=== PATIENT | male | born 1975 | race Caucasian/White ===

== ENCOUNTER 2020-04-30 11:07 | Day surgery (SDC) | payer OTHER, SELFPAY ==
[2020-04-26 12:40] VITALS: BMI 38.9
--- NOTE | 2020-04-28 15:13 | P.CONAN_ITS ---
HPI - Anesthesia Eval Consult details Narrative: 44yo M for Upper Endoscopy [facility] Past Medical History Medical History Dysphagia High cholesterol Surgical History Surgical History History of nasal surgery Hx of esophagogastroduodenoscopy Social History Social History Smoking Status: Never smoker Use of substances other than those prescribed or required for medical reasons: No Have you been hit, kicked, punched, or otherwise hurt by someone within the past year? If so, by whom?: No Advance Directives: No Advance Directives Information Provided: No Advance Directives on File: No Meds Allergies Allergy/AdvReac Type Severity Reaction Status Date / Time Codeine Phosphate Allergy Unknown rash Uncoded 04/26/20 12:39 Home Medications Medication Instructions Recorded Confirmed Type simvastatin 1 tab PO BEDTIME 04/26/20 04/26/20 History Exam Exam Date and Time: April 28, 2020 1513 Height,Weight and Vital Signs: Height 5 ft 9 in Weight 119.748 kg Assessment and Plan Assessment Anesthesia Assessment: Chart Reviewed
--- NOTE | 2020-04-30 11:32 | MHC.SHP ---
Pre-Procedural Eval Section A The patient is an INPATIENT: No Changes since office visit: No Cold of Flu in the past 2 weeks, No New Medical Problems, No Changes in Medication and No Patient answered all questions The History & Physical has been completed within 30 days and I have reviewed it.: Yes Section B Chief Complaint: dysphagia Allergies: Allergies Allergy/AdvReac Type Severity Reaction Status Date / Time Codeine Phosphate Allergy Unknown rash Uncoded 04/26/20 12:39 Plan Patient has been examined and remains a candidate for the planned procedure
[2020-04-30] MEDS: Lactated Ringers 1,000 ML 100 ML IVCONT (11:35)
--- NOTE | 2020-04-30 11:52 | PM.OP ---
Brief Operative Note Date of Service: 04/30/20 Pre-op diagnosis: dysphagia Post-op diagnosis: same (gerd with esophagitis) Procedure: egd Surgeon: Binu Chow Anesthesia: MAC Estimated blood loss (mL): 5 Pathology: none sent (antrum, egj biopsies) Condition: stable Disposition: PACU
[2020-04-30 11:57] VITALS: BP 120/80; PULSE 85; RESP 16; TEMP 37; O2SAT 97
[2020-04-30 12:12] VITALS: BP 116/82; PULSE 79; RESP 16; O2SAT 97
--- NOTE | 2020-04-30 12:26 | OP_ITS ---
SURGEON: Binu Chow MD INDICATIONS: Dysphagia and gastroesophageal reflux disease. PREOPERATIVE DIAGNOSIS: POSTOPERATIVE DIAGNOSIS: PROCEDURE PERFORMED: Upper endoscopy with biopsy. ESTIMATED BLOOD LOSS: COMPLICATIONS: ANESTHESIA: ASSISTANTS: SPECIMENS: MEDICATIONS: Monitored anesthesia care. DESCRIPTION OF PROCEDURE: History and physical performed. The risks and benefits of the procedure were explained to the patient. Informed consent was obtained. The patient was placed in left lateral decubitus position. The Olympus video gastroscope was introduced into the esophagus, stomach, and duodenum. Examination was performed and the scope was removed. He tolerated the procedure well and was taken to recovery area in stable condition. FINDINGS: Esophagus: The esophagus showed distal esophagitis with linear ulceration extending up for about 2 cm above the EG junction. There was a nonobstructive Schatzki ring and a sliding hiatal hernia. Stomach: The stomach showed no evidence of masses, ulcers, or polyps. Duodenum: The bulb and second portion were normal. Biopsies were obtained from the antrum and EG junction. No attempted dilation was made because the esophagus showed distal esophagitis. IMPRESSION: Gastroesophageal reflux disease with esophagitis. RECOMMENDATIONS: 1. Follow up the biopsy results. 2. Consider repeat endoscopy with balloon dilation, pending clinical course. MD ASHLEY Fuchs/AVINASH / [id number]
--- NOTE | 2020-04-30 13:07 | HO.POSTANES ---
Post Anesthesia Evaluation Post Anesthesia Evaluation Vital Signs: Vital Signs Temp Pulse Resp BP Pulse Ox 04/30/20 12:12 79 16 116/82 97 04/30/20 11:57 98.6 F 85 16 120/80 97 Anesthesia: Monitored Mental Status: Awake Pain Control: Satisfactory Nausea/Vomiting: None Hydration: Adequate Anesthesia-Related Issues: No Anes. Related Issues
== END 2020-04-30 12:51 | disposition home or self-care (01) ==
PROVIDERS: PCP Internal Medicine; Visit Provider Internal Medicine Gastroenterology
PROC: 0DJ08ZZ Inspection of Upper Intestinal Tract, Via Natural or Artificial Opening Endoscopic (ICD-10-PCS; CPT 43235; principal; 2020-04-30 12:20)
DX: K21.00 Gastro-esophageal reflux disease with esophagitis, without bleeding (principal); K22.2 Esophageal obstruction; K44.9 Diaphragmatic hernia without obstruction or gangrene; E78.5 Hyperlipidemia, unspecified; Z79.899 Other long term (current) drug therapy; Z88.8 Allergy status to other drugs, medicaments and biological substances
CPT/HCPCS: 43239; 88305; 88312; 88342

== ENCOUNTER 2020-10-01 10:42 | Day surgery (SDC) | payer OTHER, SELFPAY ==
[2020-09-27 13:03] VITALS: BMI 40.4
--- NOTE | 2020-09-29 14:04 | HO.ANESPROP2 ---
HPI - Anesthesia Eval Consult details Narrative: 45yo M for Upper Endoscopy s/p EGD 04/2020 with TERESO NICHOLAS Past Medical History Medical History Dysphagia High cholesterol Surgical History Surgical History History of nasal surgery Hx of esophagogastroduodenoscopy Social History Social History Are you a primary care services manager to a significant other at home: No Do you presently have visiting nurse or other home services: No Smoking Status: Never smoker Advance Directives: No Advance Directives Information Provided: No Advance Directives on File: No Recently lost weight without trying: No Meds Allergies Allergy/AdvReac Type Severity Reaction Status Date / Time Codeine Phosphate Allergy Intermediate Hives Uncoded 10/01/20 10:58 Home Medications Medication Instructions Recorded Confirmed Last Taken Type omeprazole 40 mg PO DAILY 09/27/20 09/27/20 Unknown History Exam Exam Date and Time: September 29, 2020 1404 Height,Weight and Vital Signs: Height 5 ft 9 in Weight 124.284 kg Assessment and Plan Assessment Anesthesia Assessment: Chart Reviewed
[2020-10-01 10:59] VITALS: BP 117/82; PULSE 88; RESP 18; TEMP 36.9; O2SAT 97
[2020-10-01] MEDS: Lactated Ringers 1,000 ML 100 ML IVCONT (11:04)
--- NOTE | 2020-10-01 11:44 | P.CONAN_ITS ---
[facility] Past Medical History Medical History Dysphagia High cholesterol Surgical History Surgical History History of nasal surgery Hx of esophagogastroduodenoscopy Social History Social History Are you a primary residential care facility manager to a significant other at home: No Do you presently have visiting nurse or other home services: No Smoking Status: Never smoker Advance Directives: No Advance Directives Information Provided: No Advance Directives on File: No Recently lost weight without trying: No Meds Allergies Allergy/AdvReac Type Severity Reaction Status Date / Time Codeine Phosphate Allergy Intermediate Hives Uncoded 10/01/20 10:58 Active Medications: Current Medications Generic Name Dose Route Start Last Admin Trade Name Freq PRN Reason Stop Dose Admin Lactated Ringer's 1,000 mls @ 100 mls/hr 10/01/20 11:00 10/01/20 11:04 Lr IVCONT 100 mls/hr .Q10H ZOE Administration Home Medications Medication Instructions Recorded Confirmed Last Taken Type omeprazole 40 mg PO DAILY 09/27/20 09/27/20 Unknown History Exam Exam Date and Time: October 01, 2020 1144 Height,Weight and Vital Signs: Height 5 ft 9 in Weight 124.284 kg Last Vital Signs Temp 98.5 F 10/01/20 10:59 Pulse 88 10/01/20 10:59 Resp 18 10/01/20 10:59 BP 117/82 10/01/20 10:59 Pulse Ox 97 10/01/20 10:59 Airway Mallampati Class: II TM Dist: >3cm Neck ROM: Full Assessment and Plan Assessment Anesthesia Assessment: Anesthesia Plan Discussed and Chart Reviewed Final Anesthetic Review NPO: Yes ASA Class: III Final Preanesthetic Review: No Changes in Pt Med Stat, Meds/Allgs Chart Reviewed, Consent Obtained/Reviewed and Anes Risks/Benef Reviewed Patient Risk: Intermediate Procedure Risk: Low Assessment/Block/Sedation in SS: Assess/Block/Sedation-SS Anesthetic Plan Anesthetic Plan: MAC: Disposition: Standard PACU
--- NOTE | 2020-10-01 12:07 | P.HPSUR_ITS ---
Pre-Procedural Eval Section B Chief Complaint: ulcer without bleeding Details of Present Illness: see h&P no changes Relevant Family History (Specify if Yes): No Relevant Social History: None Present Medications: see Short Stay Collaborative assessment Medical History: No relevant PMH History of Previous Operations: No relevant previous surgery Allergies: Allergies Allergy/AdvReac Type Severity Reaction Status Date / Time Codeine Phosphate Allergy Intermediate Hives Uncoded 10/01/20 10:58 Review of Systems Sugical H&P ROS: Negative: Constitution, Cardiovascular, Respiratory, Neurological, Psychiatric, Hem-Onc, Allergic/Immunologic, Gastrointestinal, Gen itourinary, Musculoskeletal, Integumentary, Endocrine and Eyes/Ears/Nose/Throat Exam Surgical H&P Exam: Normal: HEENT, Normal: Heart, Normal: Lungs, Normal: Extremities, Normal: Abdomen, Normal: Skin and Normal: Neurological Plan Diagnosis/Plan: Unchanged I have reviewed the history and physical and performed a pertinent physical examination on my patient. No changes have occurred unless specified.
--- NOTE | 2020-10-01 12:34 | PM.OP ---
Brief Operative Note Date of Service: 10/01/20 Pre-op diagnosis: erosive esophagitits Post-op diagnosis: same Procedure: egd Surgeon: Binu Chow Anesthesia: MAC Estimated blood loss (mL): 5 Pathology: other (egj,antral biopsies) Condition: stable Disposition: PACU
[2020-10-01 12:35] VITALS: BP 115/78; PULSE 87; RESP 16; TEMP 36.8; O2SAT 92
[2020-10-01 12:53] VITALS: BP 101/72; PULSE 80; RESP 18; TEMP 36.8; O2SAT 96
--- NOTE | 2020-10-01 13:49 | OP_ITS ---
SURGEON: Binu Chow MD INDICATIONS: Erosive esophagitis. PREOPERATIVE DIAGNOSIS: POSTOPERATIVE DIAGNOSIS: PROCEDURE PERFORMED: Upper endoscopy with biopsy. ESTIMATED BLOOD LOSS: COMPLICATIONS: ANESTHESIA: ASSISTANTS: SPECIMENS: MEDICATIONS: Monitored anesthesia care. DESCRIPTION OF PROCEDURE: History and physical performed. The risks and benefits of the procedure were explained to the patient. Informed consent was obtained. The patient was placed in left lateral decubitus position. The Olympus video gastroscope was introduced into the esophagus, stomach, and duodenum. Examination was performed and the scope was removed. He tolerated the procedure well and was taken to recovery area in stable condition. FINDINGS: ESOPHAGUS: The esophagus showed several small erosions right at the EG junction, but in general was much improved from his previous examination in the fall. There was nonobstructive Schatzki ring and a slight prolapsing of the EG junction consistent with a sliding hiatal hernia during respiration and coughing. STOMACH: The stomach showed no evidence of masses, ulcers, or polyps. DUODENUM: The bulb and second portion were normal. Biopsies were obtained from the EG junction and antrum. IMPRESSION: Erosive esophagitis. RECOMMENDATION: Follow up the biopsy results. MD ASHLEY Fuchs/AVINASH / [id number]
== END 2020-10-01 13:44 | disposition home or self-care (01) ==
PROVIDERS: PCP Internal Medicine; Visit Provider Internal Medicine Gastroenterology
PROC: 0DJ08ZZ Inspection of Upper Intestinal Tract, Via Natural or Artificial Opening Endoscopic (ICD-10-PCS; CPT 43235; principal; 2020-10-01 11:50)
DX: K22.10 Ulcer of esophagus without bleeding (principal); R13.10 Dysphagia, unspecified; Z79.899 Other long term (current) drug therapy; Z88.8 Allergy status to other drugs, medicaments and biological substances
CPT/HCPCS: 43239; 88305; 88342

== ENCOUNTER 2022-01-03 16:01 | Emergency (ER) | payer OTHER, SELFPAY | END 2022-01-03 17:35 | disposition left against medical advice (07) | PROVIDERS: Emergency Provider Emergency Medicine; PCP Internal Medicine | DX: S59.909A Unspecified injury of unspecified elbow, initial encounter (principal); X58.XXXA Exposure to other specified factors, initial encounter; Y93.9 Activity, unspecified; Y92.59 Other trade areas as the place of occurrence of the external cause; Y99.0 Civilian activity done for income or pay ==

== ENCOUNTER → 2023-01-03 15:23 | Outpatient (BNVA) | payer OTHER, SELFPAY | PROVIDERS: PCP Internal Medicine; Visit Provider Physician Assistant | DX: T23.251A Burn of second degree of right palm, initial encounter (principal); T52.0X1A Toxic effect of petroleum products, accidental (unintentional), initial encounter | CPT/HCPCS: 99203 ==

== ENCOUNTER → 2023-01-05 09:17 | Outpatient (BNVA) | payer OTHER, SELFPAY | PROVIDERS: PCP Internal Medicine; Visit Provider Physician Assistant | DX: T23.251A Burn of second degree of right palm, initial encounter (principal); T52.0X1A Toxic effect of petroleum products, accidental (unintentional), initial encounter | CPT/HCPCS: 99214 ==

== ENCOUNTER → 2023-01-08 11:05 | Outpatient (BNVA) | payer OTHER, SELFPAY | PROVIDERS: PCP Internal Medicine; Visit Provider Physician Assistant Medical | DX: T23.251A Burn of second degree of right palm, initial encounter (principal); T52.0X1A Toxic effect of petroleum products, accidental (unintentional), initial encounter | CPT/HCPCS: 99213 ==

== ENCOUNTER → 2023-01-16 14:03 | Outpatient (BNVA) | payer OTHER, SELFPAY | PROVIDERS: PCP Internal Medicine; Visit Provider Physician Assistant Medical | DX: T23.251D Burn of second degree of right palm, subsequent encounter (principal); T52.0X1D Toxic effect of petroleum products, accidental (unintentional), subsequent encounter | CPT/HCPCS: 99213 ==

== ENCOUNTER 2023-09-27 16:11 | Outpatient (AMB) | payer BC, SELFPAY ==
[2023-09-27 16:17] VITALS: BP 126/82; PULSE 97; O2SAT 96; BMI 40.6
--- NOTE | 2023-09-27 16:17 | MHC.PC.OV ---
Vital Signs 09/27/23 16:17 Height 5 ft 9 in Weight 275 lb 0.5 oz BMI 40.6 BP 126/82 Blood Pressure Location Lt brachial Position Sitting Pulse 97 Pulse Source Pulse Oximeter Pulse Oximetry (%) 96 Oxygen Delivery Method Room Air Intake Visit Reasons: Annual exam Intake Note: Patient is here today for a physical. Regulatory Affairs Consultant Required: No Allergies Codeine Phosphate Allergy (Intermediate, Uncoded 09/27/23 16:17) Hives Medication List - Last Reconciled 09/27/23 by Rancho Mariscal MD omeprazole 40 mg PO DAILY simvastatin 10 mg PO BEDTIME Tobacco use date assessed: 09/27/23 Dental Screening Dental Screen Date: 09/27/23 Did you have a dental visit in the last 12 months?: Yes Did you have a dental problem in the last 6 months where you did not have access to dental care?: No Was dental information given to patient?: Patient has dentist HPI Annual exam HPI Details 48-year-old morbidly obese male with a history of Barretts esophagus hypercholesterolemia coming in for physical exam last seen in April 2022. Patient was reminded about colonoscopy but this has not been done. Review of the notes has had ER visits for second-degree burn of the right palm Patient also has seen Orthopedics regarding rupture of the left distal biceps tendon status post repair of left distal biceps repair. 01/19/2022 [facility] Medical History (Updated 09/27/23 @ 16:26 by Rancho Mariscal MD) Left elbow fracture Closed left hip fracture Schatzki's ring Obstructive sleep apnea Hypercholesterolemia Obesity (BMI 30-39.9) Surgical History Hx of esophagogastroduodenoscopy History of nasal surgery Family History (Updated 09/27/23 @ 16:35 by Rancho Mariscal MD) Mother Myocardial infarct Paternal Grandmother No problems noted. Paternal Grandfather Esophageal cancer Paternal Uncle Esophageal cancer Maternal Grandmother Breast cancer in situ Father Camilo esophagus Paternal Aunt Camilo esophagus Social History (Updated 09/27/23 @ 16:36 by Rancho Mariscal MD) Housing: House Are you a primary wound care nurse to a significant other at home: No Do you presently have visiting nurse or other home services: No Alcohol intake: current Comment: once q 3 months 1-2 drinks Patient Tobacco Use Status: Never used Tobacco e-Cigarette/Vaping Use: Never Used Second Hand Smoke Exposure: No service: No Current occupational status: employed Cognitive needs: No Hearing needs: No Vision needs: No Questionnaire PHQ-9 Over the last 2 weeks, how often have you been bothered by any of the following problems? 1. Little interest or pleasure in doing things: not at all 2. Feeling down, depressed, or hopeless: not at all 3. Trouble falling or staying asleep, or sleeping too much: not at all 4. Feeling tired or having little energy: not at all 5. Poor appetite or overeating: not at all 6. Feeling bad about yourself - or that you are a failure or have let yourself or your family down: not at all 7. Trouble concentrating on things, such as reading the newspaper or watching television: not at all 8. Moving or speaking so slowly that other people could have noticed. Or the opposite - being so fidgety or restless that you have been moving around a lot more than usual: not at all 9. Thoughts that you would be better off or of hurting yourself in some way: not at all Total score: 0 Depression Screening Interpretation: Negative Depression Screening Done: Yes 22242 - PHQ-9 Billing: Yes Source: Developed by Drs. Nasim Thacker, Trupti Kaur, Clayton Krause and colleagues, with an educational karly from [employer]. Thrive Questionnaire Date Thrive assessed: 09/27/23 I am a: Patient What is your living situation today?: I have a steady place to live Within the past 12 months, did the food you bought not last and you didn't have the money to get more?: Never true Within the past 12 months, did you worry whether your food would run out before you got money to buy more?: Never true Do you have trouble paying for medicines?: No Do you have trouble getting transportation to medical appointments?: No Do you have trouble paying your heating and electricity bill?: No Do you have trouble taking care of your child, family member or friend?: No Do you have trouble with day-to-day activities such as bathing, preparing meals, shopping, managing finances, etc.?: No Are you currently unemployed and looking for a job?: No Are you interested in more education?: No Please select the resources that you would like help with: None Currently or been in a relationship where the following occur: no concerns reported THRIVE Score: 0 AUDIT C Alcohol Use Questionnaire (AUDIT-C) 1. How often do you have a drink containing alcohol?: Monthly or less 2. How many drinks containing alcohol do you have on a typical day when you are drinking?: 1 or 2 3. How often do you have six or more drinks on one occasion?: Never Total Score: 1 LEAH-7 AMB Questionnaire LEAH-7 Date LEAH - 7 assessed: 09/27/23 Feeling nervous, anxious, or on edge: 0 = Not at all Not being able to stop or control worryin = Not at all Worrying too much about different things: 0 = Not at all Trouble relaxin = Not at all Being so restless that it is hard to sit still: 0 = Not at all Becoming easily annoyed or irritable: 0 = Not at all Feeling afraid as if something awful might happen: 0 = Not at all Total LEAH-7 score (0-4 normal; 5-9 mild; 10-14 moderate; 15-21 severe): 0 Source: Developed by Drs. Nasim Thacker, Trupti Kaur, Clayton Krause and colleagues, with an educational karly from [employer]. LEAH-7 Assessment Billing LEAH-7 Assessment Tool: LEAH-7 Assessment 91386 Review of Systems Const Denies poor appetite and Denies weakness Eyes Denies no additional complaints ENT Reports Normal hearing present, Denies dizziness, Denies nasal congestion, Denies tinnitus and Denies sore throat Card Denies chest pain, Denies syncope, Denies rapid heart rate and Denies dyspnea Resp Denies cough and Denies dyspnea GI Denies change in stool character, Reports constipation, Denies diarrhea, Denies nausea and Denies vomiting Denies dysuria and Denies urinary frequency Neuro Reports Normal hearing present, Denies confusion, Denies dizziness, Denies syncope and Denies weakness Psych Denies confusion Physical exam (Primary Care) Vital Signs: Last Vital Signs Pulse 97 09/27/23 16:17 BP 126/82 09/27/23 16:17 Pulse Ox 96 09/27/23 16:17 Oxygen Delivery Method Room Air 09/27/23 16:17 BMI result Body Mass Index 40.6 Tobacco/Smoking Status: Tobacco use Status Tobacco use date assessed 09/27/23 09/27/23 16:18 Patient Tobacco Use Status Never used Tobacco 09/27/23 16:18 e-Cigarette/Vaping Use Never Used 09/27/23 16:18 PHQ-9: PHQ-9 Score PHQ-9: Total score 0 09/27/23 16:18 Depression Screening Interpretation: Negative Thrive Assessment: Date of Thrive Assessment Date Thrive assessed 09/27/23 09/27/23 16:18 Currently or been in a relationship where the following occur: no concerns reported Const General: No confusion Orientation/consciousness: No confusion HENMT Head: Yes normocephalic Ears: external ears normal and TM's normal bilaterally Face and sinus: Yes normal facial exam Mouth: moist mucous membranes Throat: Yes tonsils normal Eyes Conjunctivae: conjunctivae normal Pupils: Equal, round and reactive pupils present and Pupil accommodation reflex normal Direct Ophthalmoscopy: normal light reflex Neck Neck: No lymphadenopathy Thyroid: Thyroid normal Chest Chest palpation & inspection: normal inspection of the chest Resp Effort & Inspection: normal respiratory effort and no audible wheezes Auscultation: clear to auscultation bilaterally, no crackles, no wheezes and lung sounds not diminished Cardio Rate: regular rate Rhythm: regular rhythm Peripheral pulses: radial pulses present and dorsalis pedis present GI Other: Colonoscopy referral done Palpation (GI): no masses Auscultation: normal bowel sounds and normoactive bowel sounds Rectal Exam - Male: Yes deferred Male General Exam: Yes normal external exam Skin General skin exam: no rashes or lesions noted Rashes: no rashes Neuro General: No confusion Cranial nerves: Yes Equal, round and reactive pupils present and Yes Normal hearing present Cognition (Neuro): normal cognition Gait exam (Neuro): Normal gait present Motor exam (neuro): 5/5 motor strength present throughout Deep tendon reflexes (DTR's): Right brachioradialis reflex intensity grade: 2+, Left brachioradialis reflex intensity grade: 2+, Right patellar reflex intensity grade: 2+ and Left patellar reflex intensity grade: 2+ Extrem General: No edema Assessment and Plan Assessment & Plan (1) Annual physical exam: Code(s): Z00.00 - Encounter for general adult medical examination without abnormal findings (2) Morbid obesity: Code(s): E66.01 - Morbid (severe) obesity due to excess calories Plan: Diet and exercise. Had a long discussion with the patient with regards to getting himself healthier. Need to modify diet and needs exercise. Discussed about medications that can help lose the weight and will try sending in some Quimby bone. (3) Colon cancer screening: Code(s): Z12.11 - Encounter for screening for malignant neoplasm of colon Plan: Patient is reminded about colonoscopy and discussed importance of getting this done. (4) Rupture of left distal biceps tendon: Comment: Left distal biceps tendon repair 01/19/2022 Code(s): S46.212A - Strain of muscle, fascia and tendon of other parts of biceps, left arm, initial encounter Plan: Received notes from Orthopedics regarding the repair and doing good (5) Barretts esophagus: Code(s): K22.70 - 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 Qualifiers: Camilo's esophagus type: without dysplasia Qualified Code(s): K22.70 - 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 Plan: Avoid the foods that causes that usually spicy foods, tomato products, juices, coffee, soda and foods that your sensitive to. After eating do not lie down, allow 3-4 hours before in lie down. And keep the head of bed above 30 degrees to avoid the acid from going up. Presently on omeprazole 40 mg once a day (6) Obstructive sleep apnea: Comment: Cannot tolerate CPAP Code(s): G47.33 - Obstructive sleep apnea (adult) (pediatric) Plan: Discussed importance of treating sleep apnea. Will try to have patient lose the weight to help. (7) Hypercholesterolemia: Code(s): E78.00 - Pure hypercholesterolemia, unspecified Plan: Avoid fried foods, chicken skin, eggs, butter margarine, pastries and meat. Be it pork or beef they have a lot of cholesterol LDL goal of less than 130 and triglyceride of less than 150. Patient needs blood work Orders: Orders Complete Blood Count Auto Diff Today E78.00 - Pure hypercholesterolemia, unspecified Comprehensive Met. Panel Today E78.00 - Pure hypercholesterolemia, unspecified Free T4 (Free Thyroxine) Today E78.00 - Pure hypercholesterolemia, unspecified Thyroid Stimulating Hormone Today E78.00 - Pure hypercholesterolemia, unspecified Lipid Panel Today E78.00 - Pure hypercholesterolemia, unspecified Vitamin B12 and Folate Today E78.00 - Pure hypercholesterolemia, unspecified Prostate Specific Antigen Scr Today E78.00 - Pure hypercholesterolemia, unspecified Referrals Gastroenterology Referral Z12.11 - Encounter for screening for malignant neoplasm of colon Medications: New omeprazole 40 mg PO DAILY 90 caps 2RF K22.70 - 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 tirzepatide (weight loss) (Zepbound) 2.5 mg (0.5 mL) subcut QWEEK 4 weeks 2 mL 0RF E66.01 - Morbid (severe) obesity due to excess calories Refilled simvastatin 10 mg PO BEDTIME 90 tabs 2RF E78.00 - Pure hypercholesterolemia, unspecified Coding Level of Care Code Est Pt Prev Care 40-64y(64151) Diagnoses Annual physical exam Z00.00 Morbid obesity E66.01 Colon cancer screening Z12.11 Rupture of left distal biceps tendon S46.212A 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 K22.70 Camilo's esophagus type: without dysplasia Obstructive sleep apnea G47.33 Hypercholesterolemia E78.00 Additional Codes LEAH-7 Assessment Billing - LEAH-7 Assessment Tool: LEAH-7 Assessment 86635 ([id number])
== END 2023-09-27 16:56 | disposition home or self-care (01) ==
PROVIDERS: PCP Internal Medicine; Visit Provider Internal Medicine
DX: Z00.00 Encounter for general adult medical examination without abnormal findings (principal); E66.01 Morbid (severe) obesity due to excess calories; Z68.41 Body mass index [BMI] 40.0-44.9, adult; G47.33 Obstructive sleep apnea (adult) (pediatric); S46.212A Strain of muscle, fascia and tendon of other parts of biceps, left arm, initial encounter; K22.70 Barrett's esophagus without dysplasia; E78.00 Pure hypercholesterolemia, unspecified
CPT/HCPCS: 99396

== ENCOUNTER 2023-12-28 08:23 | Outpatient (REF) | payer BC, SELFPAY ==
[2023-12-28 08:33] LABS: MANUAL DIFF FLAG NO
[2023-12-28 09:04] LABS: Basophils Absolute Auto 0.1 X10*3/uL (0.0-0.2); Basophils Percent Auto 0.4 % (0-2); Eosinophils Absolute Auto 0.3 X10*3/uL (0.0-0.4); Eosinophils Percent Auto 2.2 % (0-4); Hematocrit 48.6 % (42.0-52.0); Hemoglobin 15.9 g/dl (14.0-18.0); Imm Gran Abs Auto 0.03 X10*3/uL (0.00-0.03); Imm Gran Pct Auto 0.3 % (0.0-0.4); Lymphocytes Absolute Auto 4.3 X10*3/uL (1.2-4.9); Lymphocytes Percent Auto 37.7 % (20-40); Mean Corpuscular HGB Conc 32.7 g/dl (31.0-36.0); Mean Corpuscular Hemoglobin 30.9 pg (27.0-33.0); Mean Corpuscular Volume 94.6 fL (80.0-98.0); Mean Platelet Volume 11.4 fL (9.4-12.4); Monocytes Absolute Auto 0.8 X10*3/uL (0.1-1.2); Monocytes Percent Auto 7.2 % (2-11); Neutrophils Absolute Auto 5.9 x10*3/uL (2.0-8.3); Neutrophils Percent Auto 52.2 % (45-73); Platelet Count 356 X10*3/uL (160-400); Red Blood Count 5.14 X10*6/uL (4.60-5.80); Red Cell Distribution Width 12.6 % (11.0-16.0); White Blood Count 11.3 X10*3/uL (4.8-10.8)
[2023-12-28 09:42] LABS: Alanine Aminotransferase 31 U/L (0-40); Albumin Level 4.4 g/dL (3.5-5.0); Alkaline Phosphatase 61 U/L (39-117); Anion Gap 12 (12-20); Aspartate Amino Transferase 20 U/L (5-37); Bilirubin Total 0.6 mg/dL (0.0-1.0); Blood Urea Nitrogen 12 mg/dL (9-16); Calcium 9.8 mg/dL (8.4-10.2); Carbon Dioxide 25 mmol/L (22-29); Chloride 108 mmol/L (96-108); Cholesterol 129 mg/dL (<200); Estimated Glomerular Filt Rate > 60; Glucose Random 98 mg/dL (60-115); HDL Cholesterol 35 mg/dL (>40); LDL Cholesterol Calculated 71 mg/dL (<100); Potassium 4.6 mmol/L (3.3-5.1); Sodium 140 mmol/L (135-145); Triglycerides 115 mg/dL (<150)
[2023-12-28 09:49] LABS: Free T4 (Free Thyroxine) 1.11 ng/dL (0.71-1.85); Thyroid Stimulating Hormone 1.06 uIU/mL (0.32-4.0)
[2023-12-28 10:51] LABS: Folate 12.3 ng/mL (> or = 4.0); Prostate Specific Antigen Scr 4.53 ng/mL (<0.05-4.0); Vitamin B12 416 pg/mL (200-900)
== END 2023-12-28 08:24 | disposition home or self-care (01) ==
LOC: HO.LAB 08:23
PROVIDERS: PCP Internal Medicine; Visit Provider Internal Medicine
DX: Z12.5 Encounter for screening for malignant neoplasm of prostate (principal); E78.00 Pure hypercholesterolemia, unspecified
CPT/HCPCS: 36415; 80053; 80061; 82607; 82746; 84153; 84439; 84443; 85025

== ENCOUNTER 2024-01-22 16:48 | Outpatient (REF) | payer BC, SELFPAY ==
[2024-01-22 18:18] LABS: PSA,Total (Free>4and<10) 3.34 ng/mL (0.00-4.00)
[2024-01-27 14:33] LABS: Testosterone, Free 55.2 pg/mL (35.0-155.0); Testosterone, Total 421 ng/dL (250-1100)
== END 2024-01-22 16:49 | disposition home or self-care (01) ==
LOC: HO.LAB 16:48
PROVIDERS: PCP Internal Medicine
DX: Z00.00 Encounter for general adult medical examination without abnormal findings (principal); R97.20 Elevated prostate specific antigen [PSA]; Z12.5 Encounter for screening for malignant neoplasm of prostate
CPT/HCPCS: 36415; 84153; 84402; 84403

== ENCOUNTER 2024-02-13 11:43 | Outpatient (AMB) | payer BC, SELFPAY ==
[2024-02-13 11:53] VITALS: BP 118/72; PULSE 80; O2SAT 98; BMI 35.0
--- NOTE | 2024-02-13 11:53 | MHC.PC.OV ---
Vital Signs 02/13/24 11:53 Height 5 ft 9 in Weight 237 lb BMI 35.0 BP 118/72 Blood Pressure Location Lt brachial Position Sitting Pulse 80 Pulse Source Pulse Oximeter Pulse Oximetry (%) 98 Oxygen Delivery Method Room Air Intake Visit Reasons: Follow Up Allergies Codeine Phosphate Allergy (Intermediate, Uncoded 09/27/23 16:17) Hives Tobacco use date assessed: 09/27/23 Dental Screening Dental Screen Date: 09/27/23 HPI Follow Up HPI Details 48-year-old obese male(40 lb weight loss_ with Barretts esophagus obstructive sleep apnea hypercholesterolemia coming in for follow-up last seen in September for physical exam. Patient's last EGD is 10/05/2020. [facility] Medical History (Updated 02/13/24 @ 12:30 by Rancho Mariscal MD) Left elbow fracture Closed left hip fracture Schatzki's ring Obstructive sleep apnea Hypercholesterolemia Obesity (BMI 30-39.9) Surgical History Hx of esophagogastroduodenoscopy History of nasal surgery Family History (Updated 02/13/24 @ 12:[address] CMA) Mother Myocardial infarct Paternal Grandmother No problems noted. Paternal Grandfather Esophageal cancer Paternal Uncle Esophageal cancer Maternal Grandmother Breast cancer in situ Father Camilo esophagus Paternal Aunt Camilo esophagus Social History (Updated 09/27/23 @ 16:36 by Rancho Mariscal MD) Housing: House Are you a primary foster care case manager to a significant other at home: No Do you presently have visiting nurse or other home services: No Alcohol intake: current Comment: once q 3 months 1-2 drinks Patient Tobacco Use Status: Never used Tobacco e-Cigarette/Vaping Use: Never Used Second Hand Smoke Exposure: No service: No Current occupational status: employed Cognitive needs: No Hearing needs: No Vision needs: No Questionnaire PHQ-9 Over the last 2 weeks, how often have you been bothered by any of the following problems? 1. Little interest or pleasure in doing things: not at all 2. Feeling down, depressed, or hopeless: not at all 3. Trouble falling or staying asleep, or sleeping too much: not at all 4. Feeling tired or having little energy: not at all 5. Poor appetite or overeating: not at all 6. Feeling bad about yourself - or that you are a failure or have let yourself or your family down: not at all 7. Trouble concentrating on things, such as reading the newspaper or watching television: not at all 8. Moving or speaking so slowly that other people could have noticed. Or the opposite - being so fidgety or restless that you have been moving around a lot more than usual: not at all 9. Thoughts that you would be better off or of hurting yourself in some way: not at all Total score: 0 Depression Screening Interpretation: Negative Depression Screening Done: Yes 44976 - PHQ-9 Billing: Yes Source: Developed by Drs. Nasim Thacker, Trupti Kaur, Clayton Krause and colleagues, with an educational karly from [employer]. Thrive Questionnaire Date Thrive assessed: 09/27/23 AUDIT C Alcohol Use Questionnaire (AUDIT-C) 1. How often do you have a drink containing alcohol?: Monthly or less 2. How many drinks containing alcohol do you have on a typical day when you are drinking?: 1 or 2 3. How often do you have six or more drinks on one occasion?: Never Total Score: 1 LEAH-7 AMB Questionnaire LEAH-7 Date LEAH - 7 assessed: 09/27/23 Source: Developed by Drs. Nasim Thacker, Trupti Kaur, Clayton Krause and colleagues, with an educational karly from [employer]. Physical exam (Primary Care) Vital Signs: Last Vital Signs Pulse 80 02/13/24 11:53 BP 118/72 02/13/24 11:53 Pulse Ox 98 02/13/24 11:53 Oxygen Delivery Method Room Air 02/13/24 11:53 BMI result Body Mass Index 35.0 Tobacco/Smoking Status: Tobacco use Status Tobacco use date assessed 09/27/23 02/13/24 11:56 Patient Tobacco Use Status Never used Tobacco 02/13/24 11:56 e-Cigarette/Vaping Use Never Used 02/13/24 11:56 PHQ-9: PHQ-9 Score PHQ-9: Total score 0 02/13/24 12:14 Depression Screening Interpretation: Negative Thrive Assessment: Date of Thrive Assessment Date Thrive assessed 09/27/23 02/13/24 11:56 Const General: alert; No acute distress Eyes Conjunctivae: conjunctivae normal Resp Auscultation: clear to auscultation bilaterally Cardio Rate: regular rate Rhythm: regular rhythm GI Inspection: Yes normal to inspection Extrem General: Yes normal to inspection and No edema Assessment and Plan Assessment & Plan (1) Obesity (BMI 30-39.9): Code(s): E66.9 - Obesity, unspecified Plan: Diet and exercise on Mounjaro. Patient is keeping active doing exercises in eating healthier. Advised to continue doing that. (2) Hypercholesterolemia: Code(s): E78.00 - Pure hypercholesterolemia, unspecified Plan: Avoid fried foods, chicken skin, eggs, butter margarine, pastries and meat. Be it pork or beef they have a lot of cholesterol LDL goal of less than 130 and triglyceride of less than 150. Cholesterol has gone down will finish his present medication and retest cholesterol in 3 months after. (3) Obstructive sleep apnea: Comment: Cannot tolerate CPAP Code(s): G47.33 - Obstructive sleep apnea (adult) (pediatric) Plan: Patient has dramatically lost weight. (4) Barretts esophagus: Code(s): K22.70 - 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 Qualifiers: Camilo's esophagus type: without dysplasia Qualified Code(s): K22.70 - 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 Plan: Avoid the foods that causes that usually spicy foods, tomato products, juices, coffee, soda and foods that your sensitive to. After eating do not lie down, allow 3-4 hours before in lie down. And keep the head of bed above 30 degrees to avoid the acid from going up. (5) PSA elevation: Code(s): R97.20 - Elevated prostate specific antigen [PSA] Plan: Retesting has come down. Continue to follow-up (6) Skin tag: Comment: L infraorbital and axilla Code(s): L91.8 - Other hypertrophic disorders of the skin Plan: Will refer to Dermatology. Orders: Referrals Dermatology Referral L91.8 - Other hypertrophic disorders of the skin Coding Level of Care Code Est Pt Level 4 (86409) Diagnoses Obesity (BMI 30-39.9) E66.9 Hypercholesterolemia E78.00 Obstructive sleep apnea G47.33 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 K22.70 Camilo's esophagus type: without dysplasia PSA elevation R97.20 Skin tag L91.8
== END 2024-02-13 12:35 | disposition home or self-care (01) ==
PROVIDERS: PCP Internal Medicine; Visit Provider Internal Medicine
DX: E78.00 Pure hypercholesterolemia, unspecified (principal); E66.9 Obesity, unspecified; G47.33 Obstructive sleep apnea (adult) (pediatric); Z68.35 Body mass index [BMI] 35.0-35.9, adult; K22.70 Barrett's esophagus without dysplasia; R97.20 Elevated prostate specific antigen [PSA]; L91.8 Other hypertrophic disorders of the skin
CPT/HCPCS: 99214

== ENCOUNTER 2024-02-29 10:28 | Day surgery (SDC) | payer BC, SELFPAY ==
[2024-02-27 14:35] VITALS: BMI 35.6
[2024-02-29 10:45] VITALS: BMI 34.7
[2024-02-29] MEDS: Lactated Ringers 1,000 ML 100 ML IVCONT (10:50)
[2024-02-29 10:57] VITALS: BP 128/61; PULSE 94; RESP 18; TEMP 36.8; O2SAT 95
--- NOTE | 2024-02-29 11:10 | HO.ANESPROP2 ---
Documented by User: Lisa Garner NP 02/28/24 09:14 HPI - Anesthesia Eval Consult details Narrative: 48yo M for Upper Endoscopy and Colonoscopy Anesthesia Pre-Procedure Meds Is the patient on any of the following meds?: GLP1/DPP4 PMFSH Active Problems Active Problems: All Active Problems Skin tag (Acute) PSA elevation (Acute) Morbid obesity (Acute) Colon cancer screening (Acute) Rupture of left distal biceps tendon (Acute) Bicipital tendonitis of right shoulder (Acute) Annual physical exam (Acute) Barretts esophagus (Acute) Schatzki's ring (Acute) Obstructive sleep apnea (Acute) Hypercholesterolemia (Acute) Obesity (BMI 30-39.9) (Acute) Past Medical History Medical History Left elbow fracture Closed left hip fracture Schatzki's ring Obstructive sleep apnea Hypercholesterolemia Obesity (BMI 30-39.9) Family History Family History (Updated 02/13/24 @ 12:[address] CMA) Mother Myocardial infarct Paternal Grandmother No problems noted. Paternal Grandfather Esophageal cancer Paternal Uncle Esophageal cancer Maternal Grandmother Breast cancer in situ Father Camilo esophagus Paternal Aunt Camilo esophagus Surgical History Surgical History History of surgery on arm Hx of esophagogastroduodenoscopy History of nasal surgery Social History Social History (Updated 02/27/24 @ 14:35 by Scarlett Smith RN) Housing: House Are you a primary point of care technician to a significant other at home: No Do you presently have visiting nurse or other home services: No Alcohol intake: current Comment: once q 3 months 1-2 drinks Patient Tobacco Use Status: Never used Tobacco e-Cigarette/Vaping Use: Never Used Second Hand Smoke Exposure: No Have you been hit, kicked, punched, or otherwise hurt by someone within the past year? If so, by whom?: No Are you DNR?: No Advance Directives: No Advance Directives Information Provided: Yes Recently lost weight without trying: No Nutrition Risks: No Nutritional Risk Poor oral hygiene: No service: No Current occupational status: employed Cognitive needs: No Hearing needs: No Vision needs: No Meds Allergies Allergy/AdvReac Type Severity Reaction Status Date / Time codeine Allergy Intermediate Hives Verified 02/29/24 10:59 Exam Height,Weight and Vital Signs: Height 5 ft 9 in Weight 109.316 kg Assessment and Plan Assessment Anesthesia Assessment: Chart Reviewed Documented by User: Chyna Pruitt DO 02/29/24 11:13 HPI - Anesthesia Eval Anesthesia Pre-Procedure Meds Is the patient on any of the following meds?: GLP1/DPP4 PMFSH Past Medical History Medical History Left elbow fracture Closed left hip fracture Schatzki's ring Obstructive sleep apnea Hypercholesterolemia Obesity (BMI 30-39.9) Family History Family History (Updated 02/13/24 @ 12:[address] [facility]) Mother Myocardial infarct Paternal Grandmother No problems noted. Paternal Grandfather Esophageal cancer Paternal Uncle Esophageal cancer Maternal Grandmother Breast cancer in situ Father Camilo esophagus Paternal Aunt Camilo esophagus Family history of problems with anesthesia: No Surgical History Surgical History History of surgery on arm Hx of esophagogastroduodenoscopy History of nasal surgery History of Problems with Anesthesia: No Social History Social History (Updated 02/27/24 @ 14:35 by Scarlett Smith RN) Housing: House Are you a primary point of care technician to a significant other at home: No Do you presently have visiting nurse or other home services: No Alcohol intake: current Comment: once q 3 months 1-2 drinks Patient Tobacco Use Status: Never used Tobacco e-Cigarette/Vaping Use: Never Used Second Hand Smoke Exposure: No Have you been hit, kicked, punched, or otherwise hurt by someone within the past year? If so, by whom?: No Are you DNR?: No Advance Directives: No Advance Directives Information Provided: Yes Recently lost weight without trying: No Nutrition Risks: No Nutritional Risk Poor oral hygiene: No service: No Current occupational status: employed Cognitive needs: No Hearing needs: No Vision needs: No Meds Allergies Allergy/AdvReac Type Severity Reaction Status Date / Time codeine Allergy Intermediate Hives Verified 02/29/24 10:59 Exam Exam Date and Time: 02/29/24 1110 Height,Weight and Vital Signs: Height 5 ft 9 in Weight 109.316 kg Vital Signs Temperature 98.2 F 02/29/24 10:57 Pulse Rate 94 02/29/24 10:57 Respiratory Rate 18 02/29/24 10:57 Blood Pressure 128/61 02/29/24 10:57 Pulse Oximetry 95 02/29/24 10:57 Oxygen Delivery Method Room Air 02/29/24 10:57 Temperature 98.2 F 02/29/24 10:57 Pulse Rate 94 02/29/24 10:57 Respiratory Rate 18 02/29/24 10:57 Blood Pressure 128/61 02/29/24 10:57 Pulse Oximetry 95 02/29/24 10:57 Oxygen Delivery Method Room Air 02/29/24 10:57 Airway Mallampati Class: I TM Dist: >3cm Neck ROM: Full Loose/Missing/Broken Teeth: No (patient denies any loose or broken teeth) Heart: S1S2 Lungs: CTAB Assessment and Plan Assessment Anesthesia Assessment: Anesthesia Plan Discussed and Chart Reviewed Final Anesthetic Review Family History of Problems with Anesthesia: No History of Problems with Anesthesia: No NPO: Yes ASA Class: II Final Preanesthetic Review: No Changes in Pt Med Stat, Meds/Allgs Chart Reviewed, Consent Obtained/Reviewed and Anes Risks/Benef Reviewed Patient Risk: Low Procedure Risk: Low Anesthetic Plan Anesthetic Plan: MAC: and Agree w/ Assess. and Plan Disposition: Standard PACU
--- NOTE | 2024-02-29 11:26 | MHC.SHP ---
Pre-Procedural Eval Section A - 24 Hr Update-Section A only Date of Service: 02/29/24 The patient is an INPATIENT: No Changes since office visit: No Cold of Flu in the past 2 weeks, No New Medical Problems, No Changes in Medication and No Patient answered all questions The patient has been examined within 24 hours of the surgical procedure. The History & Physical has been completed within 30 days and I have reviewed it.: Yes Section B - Complete if H&P > 30 days Chief Complaint: Encounter for screening for malignant neoplasm of Allergies: Allergies Allergy/AdvReac Type Severity Reaction Status Date / Time codeine Allergy Intermediate Hives Verified 02/29/24 10:59 Plan I have reviewed the history and physical and performed a pertinent physical examination on my patient. No changes have occurred unless specified. Time Spent With Patient Time: Total time managing care of this patient today ____ minutes.
[2024-02-29 12:50] VITALS: BP 94/55; PULSE 85; RESP 16; TEMP 36.3; O2SAT 96
[2024-02-29 13:05] VITALS: BP 99/65; PULSE 90; RESP 16; O2SAT 90
[2024-02-29 13:20] VITALS: BP 118/82; PULSE 84; RESP 20; TEMP 36.2; O2SAT 96
--- NOTE | 2024-02-29 23:20 | OP_ITS ---
DATE OF SERVICE: 02/29/2024 SURGEON: Binu Chow MD INDICATIONS: 1. Colon cancer screening. 2. Camilo's esophagus. PREOPERATIVE DIAGNOSIS: POSTOPERATIVE DIAGNOSIS: PROCEDURE PERFORMED: 1. Colonoscopy to the terminal ileum. 2. Upper endoscopy with biopsy. ESTIMATED BLOOD LOSS: COMPLICATIONS: ANESTHESIA: Medications, monitored anesthesia care. ASSISTANTS: SPECIMENS: DESCRIPTION OF PROCEDURE: A history and physical performed. The risks and benefits of the procedure were explained to the patient and informed consent was obtained. The patient was placed in the left lateral decubitus position. A digital rectal exam was performed was found to be normal. The Olympus pediatric colonoscope was introduced into the rectum and advanced to the cecum. The cecum was identified by transillumination, palpation, and identification of ileocecal valve. Examination was performed. The scope was removed. He was repositioned for upper endoscopy. The Olympus video gastroscope was introduced into the esophagus, stomach, and duodenum. Examination was performed. The scope was removed. He tolerated both procedures well. During the colonoscopy, the first colonoscope that was used malfunctioned and a 2nd colonoscope was brought into the room and used to replace the malfunctioning scope. FINDINGS: Colonoscopy: The terminal ileum was examined and appeared normal. The visualized colonic mucosa was normal. There was moderate amount of liquid in the colon, which was washed and suctioned. The exam was considered adequate for examination for small polyps. No polyps were identified. Retroflexed examination showed some small internal hemorrhoids. Upper endoscopy: 1. Esophagus: The esophagus was normal. There was a less than 1 cm area of Camilo esophagus and nonobstructive Schatzki ring at the EG junction. There was a small hiatal hernia. 2. Stomach: The stomach showed no evidence of masses, ulcers, or polyps. 3. Duodenum: The bulb and 2nd portion were normal. Biopsies were obtained from the EG junction because of the patient's history of Camilo's esophagus. IMPRESSION: 1. Normal colonoscopy. 2. Camilo's esophagus. RECOMMENDATION: 1. Follow up the biopsy results. 2. Screening colonoscopy is recommended in 10 years for average-risk individuals. MD ASHLEY Fuchs/FERCHOL / [id number]
== END 2024-02-29 13:48 | disposition home or self-care (01) ==
PROVIDERS: PCP Internal Medicine; Visit Provider Internal Medicine Gastroenterology
PROC: (CPT 43239; principal; 2024-02-29 12:30)
DX: K22.70 Barrett's esophagus without dysplasia (principal); K22.2 Esophageal obstruction; K44.9 Diaphragmatic hernia without obstruction or gangrene; Z12.11 Encounter for screening for malignant neoplasm of colon; K64.8 Other hemorrhoids; E78.00 Pure hypercholesterolemia, unspecified; G47.33 Obstructive sleep apnea (adult) (pediatric); E66.9 Obesity, unspecified; Z68.35 Body mass index [BMI] 35.0-35.9, adult; Z79.899 Other long term (current) drug therapy; Z79.02 Long term (current) use of antithrombotics/antiplatelets
CPT/HCPCS: 43239; 45378; 88305; 88313; J1596; J2704

== ENCOUNTER 2024-05-19 08:30 | Outpatient (AMB) | payer BC, SELFPAY ==
[2024-05-19 08:41] VITALS: BP 110/78; PULSE 107; O2SAT 95; BMI 33.1
--- NOTE | 2024-05-19 08:41 | MHC.PC.OV ---
Vital Signs 05/19/24 08:41 Height 5 ft 9 in Weight 224 lb BMI 33.1 BP 110/78 Blood Pressure Location Lt brachial Position Sitting Pulse 107 H Pulse Source Pulse Oximeter Pulse Oximetry (%) 95 Oxygen Delivery Method Room Air Intake Visit Reasons: 4 mo f/u obesity Jewel Cupping Machine Operator Required: No Accompanied by: Self / Same As Patient Allergies codeine Allergy (Intermediate, Verified 05/19/24 08:42) Hives Medication List - Last Reconciled 05/19/24 by Vernell Pandey PA-C omeprazole 40 mg PO DAILY simvastatin 10 mg PO BEDTIME tirzepatide (weight loss) 7.5 mg (0.5 mL) subcut QWEEK 4 weeks Tobacco use date assessed: 05/19/24 Dental Screening Dental Screen Date: 05/19/24 Did you have a dental visit in the last 12 months?: Yes Did you have a dental problem in the last 6 months where you did not have access to dental care?: No Was dental information given to patient?: Patient has dentist HPI 4 mo f/u obesity HPI Details 48-year-old obese male with past medical history of Barretts esophagus, obstructive sleep apnea, hypercholesterolemia last seen by Dr. Mariscal January 2024 coming in for follow up. In review of the notes patient had colonoscopy completed 04/01/2024 advised to follow up in 10 years. Patient has noted 13 lb weight loss since last visit. Patient states he has been going to the gym 3 times per week doing a mix of cardio and strength training. His diet is overall improving. Denies any side effects from the injections including diarrhea, nausea or vomiting. He does mentioned he has been increasingly irritable and has noticed decreased libido. [facility] Medical History Left elbow fracture Closed left hip fracture Schatzki's ring Obstructive sleep apnea Hypercholesterolemia Obesity (BMI 30-39.9) Surgical History History of surgery on arm Hx of esophagogastroduodenoscopy History of nasal surgery Family History Mother Myocardial infarct Paternal Grandmother No problems noted. Paternal Grandfather Esophageal cancer Paternal Uncle Esophageal cancer Maternal Grandmother Breast cancer in situ Father Camilo esophagus Paternal Aunt Camilo esophagus Social History Housing: House Are you a primary critical care unit manager to a significant other at home: No Do you presently have visiting nurse or other home services: No Alcohol intake: current Comment: once q 3 months 1-2 drinks Patient Tobacco Use Status: Never used Tobacco e-Cigarette/Vaping Use: Never Used Second Hand Smoke Exposure: No service: No Current occupational status: employed Cognitive needs: No Hearing needs: No Vision needs: No Questionnaire PHQ-9 Over the last 2 weeks, how often have you been bothered by any of the following problems? 1. Little interest or pleasure in doing things: not at all 2. Feeling down, depressed, or hopeless: not at all 3. Trouble falling or staying asleep, or sleeping too much: not at all 4. Feeling tired or having little energy: not at all 5. Poor appetite or overeating: not at all 6. Feeling bad about yourself - or that you are a failure or have let yourself or your family down: not at all 7. Trouble concentrating on things, such as reading the newspaper or watching television: not at all 8. Moving or speaking so slowly that other people could have noticed. Or the opposite - being so fidgety or restless that you have been moving around a lot more than usual: not at all 9. Thoughts that you would be better off or of hurting yourself in some way: not at all Total score: 0 Depression Screening Interpretation: Negative Depression Screening Done: Yes 08389 - PHQ-9 Billing: Yes Source: Developed by Drs. Nasim Thacker, Trupti Kaur, Clayton Krause and colleagues, with an educational karly from [employer]. Thrive Questionnaire Date Thrive assessed: 05/19/24 I am a: Patient What is your living situation today?: I have a steady place to live Within the past 12 months, did the food you bought not last and you didn't have the money to get more?: Never true Within the past 12 months, did you worry whether your food would run out before you got money to buy more?: Never true Do you have trouble paying for medicines?: No Do you have trouble getting transportation to medical appointments?: No Do you have trouble paying your heating and electricity bill?: No Do you have trouble taking care of your child, family member or friend?: No Do you have trouble with day-to-day activities such as bathing, preparing meals, shopping, managing finances, etc.?: No Are you currently unemployed and looking for a job?: No Are you interested in more education?: No Please select the resources that you would like help with: None Currently or been in a relationship where the following occur: No concerns reported THRIVE Score: 0 AUDIT C Alcohol Use Questionnaire (AUDIT-C) 1. How often do you have a drink containing alcohol?: Monthly or less 2. How many drinks containing alcohol do you have on a typical day when you are drinking?: 1 or 2 3. How often do you have six or more drinks on one occasion?: Never Total Score: 1 LEAH-7 AMB Questionnaire LEAH-7 Date LEAH - 7 assessed: 05/19/24 Feeling nervous, anxious, or on edge: 0 = Not at all Not being able to stop or control worryin = Not at all Worrying too much about different things: 0 = Not at all Trouble relaxin = Not at all Being so restless that it is hard to sit still: 0 = Not at all Becoming easily annoyed or irritable: 0 = Not at all Feeling afraid as if something awful might happen: 0 = Not at all Total LEAH-7 score (0-4 normal; 5-9 mild; 10-14 moderate; 15-21 severe): 0 Source: Developed by Drs. Nasim Thacker, Trupti Kaur, Clayton Krause and colleagues, with an educational karly from [employer]. Review of Systems Const Denies body aches, Denies chills, Denies fever(s), Denies headache(s) and Denies poor appetite Eyes Reports no additional complaints ENT Denies dizziness and Denies headache(s) Card Denies chest pain, Denies syncope, Denies edema, Denies irregular heart rhythm, Denies lightheadedness and Denies dyspnea Resp Denies cough and Denies dyspnea GI Denies abdominal pain, Denies constipation, Denies diarrhea, Denies nausea and Denies vomiting Reports no additional complaints Musc Reports no additional complaints and Denies abnormal gait Skin/Breast Reports system reviewed and no additional complaints, except as documented Neuro Denies abnormal gait, Denies dizziness, Denies syncope and Denies headache(s) Psych Reports no additional complaints Physical exam (Primary Care) Vital Signs: Oxygen Delivery Method Room Air 05/19/24 08:41 BMI result Body Mass Index 33.1 Tobacco/Smoking Status: Tobacco use Status Tobacco use date assessed 09/27/23 02/13/24 11:56 Patient Tobacco Use Status Never used Tobacco 02/29/24 11:26 e-Cigarette/Vaping Use Never Used 02/13/24 11:56 Depression Screening Interpretation: Negative Thrive Assessment: Date of Thrive Assessment Date Thrive assessed 09/27/23 02/13/24 11:56 Currently or been in a relationship where the following occur: No concerns reported Const General: cooperative, healthy appearing, comfortable and no acute distress Orientation/consciousness: patient oriented x3 HENMT Head: Yes normocephalic Ears: hearing grossly normal bilaterally General nose exam: Normal external nose present Eyes General: appearance normal, both eyes and all related structures Conjunctivae: conjunctivae normal Neck Neck: Yes full ROM and Yes no lymphadenopathy Resp Effort & Inspection: normal respiratory effort Auscultation: clear to auscultation bilaterally, no crackles, no rales, no rhonchi and no wheezes Cardio Rate: regular rate Rhythm: regular rhythm Skin General skin exam: no rashes or lesions noted Neuro General: patient oriented x3 Gait exam (Neuro): Normal gait present Extrem General: Yes normal to inspection, Yes full ROM and No edema Psych Affect: normal affect Attitude: cooperative Insight: Good insight present (Psych) Judgement: Good judgement present (Psych) Coding Level of Care Code Est Pt Level 4 (51102) Diagnoses 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 K22.70 Camilo's esophagus type: without dysplasia Hypercholesterolemia E78.00 Obesity (BMI 30-39.9) E66.9 Low testosterone R79.89 Additional Codes PHQ-9 - 00272 - PHQ-9 Billing: Yes ([id number]) Assessment & Plan Assessment & Plan (1) Barretts esophagus: Code(s): K22.70 - 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 Category: Medical Qualifiers: Camilo's esophagus type: without dysplasia Qualified Code(s): K22.70 - 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 Plan: Avoid trigger foods such as citrus, tomato products, soda, caffeine, spicy foods and other foods that may be irritating to your stomach. Avoid laying flat 3-4 hours after eating and elevate the head of the bed 30 degrees to prevent acid from moving into the esophagus. (2) Hypercholesterolemia: Code(s): E78.00 - Pure hypercholesterolemia, unspecified Category: Medical Plan: Avoid foods that are high in cholesterol such as red meat, fried foods, eggs and baked goods. Triglyceride goal of less than 150 and LDL goal of less than 130. Continue on simvastatin (3) Obesity (BMI 30-39.9): Code(s): E66.9 - Obesity, unspecified Category: Medical Plan: Healthy diet and regular exercise is encouraged. Patient currently on Tirzepatide 7.5 mg doing well on this dose and does not want to increase at this time. (4) Low testosterone: Code(s): R79.89 - Other specified abnormal findings of blood chemistry Category: Medical Plan: Last testosterone labs on the low side of normal we will refer to Urology for possible testosterone replacement. Plan This note was constructed using voice recognition software. While every effort has been made to ensure accuracy and director trading, still areas may have been included sometimes these areas may affect the content or meeting of the given symptoms. Total time spent caring for the patient today was 30 minutes. This includes time spent before the visit reviewing the chart, time spent during the visit, and time spent after the visit and documentation. Orders: Referrals Urology Referral R79.89 - Other specified abnormal findings of blood chemistry
== END 2024-05-19 09:00 | disposition home or self-care (01) ==
PROVIDERS: PCP Internal Medicine
DX: K22.70 Barrett's esophagus without dysplasia (principal); E78.00 Pure hypercholesterolemia, unspecified; E66.9 Obesity, unspecified; Z68.33 Body mass index [BMI] 33.0-33.9, adult

== ENCOUNTER → 2024-05-19 08:30 | Outpatient (BNVA) | payer BC, SELFPAY | PROVIDERS: PCP Internal Medicine | DX: K22.70 Barrett's esophagus without dysplasia (principal); E78.00 Pure hypercholesterolemia, unspecified; E66.9 Obesity, unspecified; Z68.33 Body mass index [BMI] 33.0-33.9, adult; R79.89 Other specified abnormal findings of blood chemistry | CPT/HCPCS: 96127 ==

== ENCOUNTER → 2024-07-11 09:32 | Outpatient (BNVA) | payer BC, SELFPAY | PROVIDERS: PCP Internal Medicine; Visit Provider Urology | DX: R79.89 Other specified abnormal findings of blood chemistry (principal); R97.20 Elevated prostate specific antigen [PSA] | CPT/HCPCS: 81003 ==

== ENCOUNTER 2024-09-30 09:06 | Outpatient (AMB) | payer BC, SELFPAY ==
[2024-09-30 09:13] VITALS: BP 122/80; PULSE 87; O2SAT 96; BMI 31.2
--- NOTE | 2024-09-30 09:13 | MHC.PC.OV ---
Vital Signs 09/30/24 09:13 Height 5 ft 9 in Weight 211 lb 8 oz BMI 31.2 BP 122/80 Blood Pressure Location Lt brachial Position Sitting Pulse 87 Pulse Source Pulse Oximeter Pulse Oximetry (%) 96 Oxygen Delivery Method Room Air Intake Visit Reasons: PE Lead Engineer Required: No Accompanied by: Self / Same As Patient Allergies codeine Allergy (Intermediate, Verified 09/30/24 09:14) Hives Medication List - Last Reconciled 09/30/24 by Rancho Mariscal MD multivitamin 1 tab PO DAILY omeprazole 20 mg PO DAILY tadalafil (Cialis) 5 mg PO DAILY tirzepatide (weight loss) 10 mg (0.5 mL) subcut QWEEK 4 weeks Tobacco use date assessed: 09/30/24 Dental Screening Dental Screen Date: 09/30/24 Did you have a dental visit in the last 12 months?: Yes Did you have a dental problem in the last 6 months where you did not have access to dental care?: No Was dental information given to patient?: Patient has dentist HPI PE HPI Details L shoulder pain 1 year hx of fall PFSH Medical History (Updated 09/30/24 @ 09:43 by Rancho Mariscal MD) Colon cancer screening Low testosterone Left elbow fracture Closed left hip fracture Schatzki's ring Obstructive sleep apnea Hypercholesterolemia Obesity (BMI 30-39.9) Surgical History History of surgery on arm Hx of esophagogastroduodenoscopy History of nasal surgery Family History Mother Myocardial infarct Paternal Grandmother No problems noted. Paternal Grandfather Esophageal cancer Paternal Uncle Esophageal cancer Maternal Grandmother Breast cancer in situ Father Camilo esophagus Paternal Aunt Camilo esophagus Social History Housing: House Are you a primary healthcare sales representative to a significant other at home: No Do you presently have visiting nurse or other home services: No Alcohol intake: current Comment: once q 3 months 1-2 drinks Patient Tobacco Use Status: Never used Tobacco e-Cigarette/Vaping Use: Never Used Second Hand Smoke Exposure: No service: No Current occupational status: employed Cognitive needs: No Hearing needs: No Vision needs: No Questionnaire PHQ-9 Over the last 2 weeks, how often have you been bothered by any of the following problems? 1. Little interest or pleasure in doing things: not at all 2. Feeling down, depressed, or hopeless: not at all 3. Trouble falling or staying asleep, or sleeping too much: not at all 4. Feeling tired or having little energy: not at all 5. Poor appetite or overeating: not at all 6. Feeling bad about yourself - or that you are a failure or have let yourself or your family down: not at all 7. Trouble concentrating on things, such as reading the newspaper or watching television: not at all 8. Moving or speaking so slowly that other people could have noticed. Or the opposite - being so fidgety or restless that you have been moving around a lot more than usual: not at all 9. Thoughts that you would be better off or of hurting yourself in some way: not at all Total score: 0 Source: Developed by Drs. Nasim Thacker, Trupti Kaur, Clayton Krause and colleagues, with an educational karly from [employer] [place] [employer]. Thrive Questionnaire Date Thrive assessed: 09/30/24 I am a: Patient What is your living situation today?: I have a steady place to live Within the past 12 months, did the food you bought not last and you didn't have the money to get more?: Never true Within the past 12 months, did you worry whether your food would run out before you got money to buy more?: Never true Do you have trouble paying for medicines?: No Do you have trouble getting transportation to medical appointments?: No Do you have trouble paying your heating and electricity bill?: No Do you have trouble taking care of your child, family member or friend?: No Do you have trouble with day-to-day activities such as bathing, preparing meals, shopping, managing finances, etc.?: No Are you currently unemployed and looking for a job?: No Are you interested in more education?: Yes Please select the resources that you would like help with: None Currently or been in a relationship where the following occur: No concerns reported THRIVE Score: 0 AUDIT C Alcohol Use Questionnaire (AUDIT-C) 1. How often do you have a drink containing alcohol?: Monthly or less 2. How many drinks containing alcohol do you have on a typical day when you are drinking?: 1 or 2 3. How often do you have six or more drinks on one occasion?: Never Total Score: 1 LEAH-7 AMB Questionnaire LEAH-7 Date LEAH - 7 assessed: 09/30/24 Feeling nervous, anxious, or on edge: 0 = Not at all Not being able to stop or control worryin = Not at all Worrying too much about different things: 0 = Not at all Trouble relaxin = Not at all Being so restless that it is hard to sit still: 0 = Not at all Becoming easily annoyed or irritable: 0 = Not at all Feeling afraid as if something awful might happen: 0 = Not at all Total LEAH-7 score (0-4 normal; 5-9 mild; 10-14 moderate; 15-21 severe): 0 Source: Developed by Drs. Nasim Thacker, Trupti Kaur, Clayton Krause and colleagues, with an educational karly from [employer] [place] [employer]. Review of Systems Const Denies poor appetite and Denies weakness Eyes Denies no additional complaints ENT Reports Normal hearing present, Denies dizziness, Denies nasal congestion, Denies tinnitus and Denies sore throat Card Denies chest pain, Denies syncope, Denies rapid heart rate and Denies dyspnea Resp Denies cough and Denies dyspnea GI Denies change in stool character, Reports constipation, Denies diarrhea, Denies nausea and Denies vomiting Denies dysuria and Denies urinary frequency Neuro Reports Normal hearing present, Denies confusion, Denies dizziness, Denies syncope and Denies weakness Psych Denies confusion Physical exam (Primary Care) Vital Signs: Last Vital Signs Pulse 87 09/30/24 09:13 BP 122/80 09/30/24 09:13 Pulse Ox 96 09/30/24 09:13 Oxygen Delivery Method Room Air 09/30/24 09:13 BMI result Body Mass Index 31.2 Tobacco/Smoking Status: Tobacco use Status Tobacco use date assessed 09/30/24 09/30/24 09:19 Patient Tobacco Use Status Never used Tobacco 09/30/24 09:19 e-Cigarette/Vaping Use Never Used 09/30/24 09:19 PHQ-9: PHQ-9 Score PHQ-9: Total score 0 09/30/24 09:19 Thrive Assessment: Date of Thrive Assessment Date Thrive assessed 09/30/24 09/30/24 09:19 Currently or been in a relationship where the following occur: No concerns reported Const General: No confusion Orientation/consciousness: No confusion HENMT Head: Yes normocephalic Ears: external ears normal and TM's normal bilaterally Face and sinus: Yes normal facial exam Mouth: moist mucous membranes Throat: Yes tonsils normal Eyes Conjunctivae: conjunctivae normal Pupils: Equal, round and reactive pupils present and Pupil accommodation reflex normal Direct Ophthalmoscopy: normal light reflex Neck Neck: No lymphadenopathy Thyroid: Thyroid normal Chest Chest palpation & inspection: normal inspection of the chest Resp Effort & Inspection: normal respiratory effort and no audible wheezes Auscultation: clear to auscultation bilaterally, no crackles, no wheezes and lung sounds not diminished Cardio Rate: regular rate Rhythm: regular rhythm Peripheral pulses: radial pulses present and dorsalis pedis present GI Palpation (GI): no masses Auscultation: normal bowel sounds and normoactive bowel sounds Rectal Exam - Male: Yes deferred Male General Exam: Yes normal external exam Skin General skin exam: no rashes or lesions noted Rashes: no rashes Neuro General: No confusion Cranial nerves: Yes Equal, round and reactive pupils present and Yes Normal hearing present Cognition (Neuro): normal cognition Gait exam (Neuro): Normal gait present Motor exam (neuro): 5/5 motor strength present throughout Deep tendon reflexes (DTR's): Right brachioradialis reflex intensity grade: 2+, Left brachioradialis reflex intensity grade: 2+, Right patellar reflex intensity grade: 2+ and Left patellar reflex intensity grade: 2+ Extrem General: No edema Coding Level of Care Code Est Pt Prev Care 40-64y(28876) Diagnoses Annual physical exam Z00.00 Obesity (BMI 30-39.9) E66.9 Hypercholesterolemia E78.00 Obstructive sleep apnea G47.33 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 K22.70 Camilo's esophagus type: without dysplasia Impingement of left shoulder M25.812 Assessment & Plan Assessment & Plan (1) Annual physical exam: Code(s): Z00.00 - Encounter for general adult medical examination without abnormal findings Category: Medical Plan: Patient is advised to eat healthy, keep well hydrated, keep active and have adequate sleep. (2) Obesity (BMI 30-39.9): Code(s): E66.9 - Obesity, unspecified Category: Medical Plan: Patient has been started on tirzepatide (3) Hypercholesterolemia: Code(s): E78.00 - Pure hypercholesterolemia, unspecified Category: Medical Plan: Avoid fried foods, chicken skin, eggs, butter margarine, pastries and meat. Be it pork or beef they have a lot of cholesterol LDL goal of less than 130 and triglyceride of less than 150. (4) Obstructive sleep apnea: Comment: Cannot tolerate CPAP Code(s): G47.33 - Obstructive sleep apnea (adult) (pediatric) Category: Medical (5) Barretts esophagus: Code(s): K22.70 - 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 Category: Medical Qualifiers: Camilo's esophagus type: without dysplasia Qualified Code(s): K22.70 - 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 Plan: Avoid the foods that causes that usually spicy foods, tomato products, juices, coffee, soda and foods that your sensitive to. After eating do not lie down, allow 3-4 hours before in lie down. And keep the head of bed above 30 degrees to avoid the acid from going up. (6) Impingement of left shoulder: Code(s): M25.812 - Other specified joint disorders, left shoulder Category: Medical Plan History of Present Illness The patient is a 49-year-old male presenting for a routine annual physical examination. He has experienced a weight loss of 13 pounds since May 2024, alongside a medical history of obesity and hypercholesterolemia, under control by targeting specific lipid goals. Obstructive sleep apnea is managed without CPAP due to intolerance, and Camilo's esophagus is managed with omeprazole intermittently. There is normalization of previously elevated PSA levels with stable testosterone levels now. The patient's hypogonadism is currently managed with tadalafil. He reports left shoulder pain exacerbated by specific activities at the gym related to a longstanding history of shoulder problems possibly linked to a previous fall. Prior dermatological intervention for skin tags and discussion of an ingrown hair were mentioned. His family history includes both cardiac and oncological precedents, informing ongoing screenings and lifestyle recommendations. Health Maintenance - Cholesterol management with LDL target <130 mg/dL and triglycerides <150 mg/dL - Regular colon cancer screening, last done March 2024 - EGD and colonoscopy screening - PSA levels monitored, last checked in January and in normal range - Annual blood work completed in December, next planned in October - Encouraged ongoing exercise; discussed left shoulder issues potentially impacting activity - Dietary guidance given with a focus on overall wellness and weight management aided by tirzepatide - Alcohol consumption reviewed as minimal - Family history indicates need for vigilance in cardiac and oncological screenings Social History - Rare alcohol consumption, approximately once every three months, generally limited to one or two drinks - No history of smoking or illicit drug use - Regular gym attendance with noted shoulder pain impacting exercise capacity - 13-pound weight reduction since last visit - Informed significant water consumption in the evenings - New puppy acquired, likely influencing physical activity Review of Systems Physical Exam General: Cooperative, healthy appearing, comfortable, no acute distress and well developed Orientation: Patient oriented x3 Limitations: Left shoulder pain with certain movements, possibly due to impingement Head: Normal to inspection Ears: Hearing grossly normal bilaterally Nose: Normal external nose present Face and sinus: Normal facial exam Eyes: Appearance normal, both eyes and all related structures Neck: Normal visual inspection and Yes full ROM Respiratory: Normal respiratory effort and able to speak in complete sentences. Clear to auscultation bilaterally Cardiovascular: Regular rate and rhythm. Normal S1 and S2 GI: Normal to inspection. Soft to palpation and nontender Skin: No rashes or lesions noted; patient has skin tags, one removed by dermatology Neuro: Patient oriented x3 Extremities: Normal to inspection; left shoulder pain with certain movements, possibly due to impingement Results - Labs: Normal blood count, electrolytes, renal function, blood sugar, and liver function; PSA normal as of last check. B12 and thyroid levels within normal limits. - Colonoscopy and EGD in March 2024; outcomes reported as clean Plan Management of obesity includes tirzepatide, with considerations for dose adjustment discussed if weight loss plateaus. Hypercholesterolemia management continues with established lipid targets. Obstructive sleep apnea remains under management sans CPAP, with further studies if symptomatology worsens. Camilo's esophagus continues to be managed with omeprazole to control reflux symptoms. Hypogonadism is managed well with tadalafil and testosterone monitoring. Left shoulder pain assessment will include orthopedic consultation and radiographic examination. Routine screenings confirm colonoscopy and PSA levels are within normal expectations. Dermatological consultations will proceed subject to insurance provision. Patient was informed and verbally consented to the use of an ambient scribe for clinic note documentation during this visit. Discussion Notes During our visit, I discussed managing hypercholesterolemia with specific lipid goals and continued usage of tirzepatide for weight management. I explained the risks and benefits of increasing the tirzepatide dose should weight loss slow. We reviewed the patient's inability to tolerate CPAP and the related treatment implications for obstructive sleep apnea. Camilo's esophagus management was discussed, highlighting the role of omeprazole. For hypogonadism, ongoing management with tadalafil was reaffirmed with a commentary on previously abnormal PSA results that normalized on retesting. The patient's left shoulder pain prompted referral to orthopedics and a planned x-ray investigation, highlighting the importance of assessing chronicity and ensuring functional activity alignment. We reviewed the findings of recent tests, and vaccinations and preventive screenings were also covered in our discussion. Patient Instructions - Continue using tirzepatide at 7.5 mg; report any nausea or changes in weight loss over time. - Maintain dietary measures to manage cholesterol. Aim for LDL below 130 mg/dL. - Use omeprazole as needed for reflux, especially given Camilo's esophagus history. - Monitor exposure to allergens given codeine allergy. - Follow exercise regimen carefully considering shoulder pain; attend orthopedic consultation. - Keep alcohol consumption minimal and engage in physical activity as tolerated. - Schedule x-ray and laboratory tests as planned in October. - Return to follow up on any emerging symptoms or complications. - Monitor fluid intake to minimize nocturia while supporting hydration. - Complete any pending vaccinations and preventative screenings as advised. Orders: Orders Complete Blood Count Auto Diff Today E78.00 - Pure hypercholesterolemia, unspecified Comprehensive Met. Panel Today E78.00 - Pure hypercholesterolemia, unspecified Thyroid Stimulating Hormone Today E78.00 - Pure hypercholesterolemia, unspecified Vitamin B12 and Folate Today E78.00 - Pure hypercholesterolemia, unspecified XR shoulder LT min 2V Today M25.812 - Other specified joint disorders, left shoulder Free T4 (Free Thyroxine) Today E78.00 - Pure hypercholesterolemia, unspecified Lipid Panel Today E78.00 - Pure hypercholesterolemia, unspecified Referrals Orthopedics Referral M25.812 - Other specified joint disorders, left shoulder Medications: Changed From tirzepatide (weight loss) 7.5 mg (0.5 mL) subcut QWEEK 4 weeks 2 mL 2RF E66.01 - Morbid (severe) obesity due to excess calories To tirzepatide (weight loss) 10 mg (0.5 mL) subcut QWEEK 4 weeks 2 mL 2RF E66.01 - Morbid (severe) obesity due to excess calories
--- OUTSIDE RECORDS SUMMARY | 2024-09-30 09:47 | XMS_ITS | Patient Health Record ---
Author Organization [facility] Address [address] [place] [phone] Care Team Providers Care Hr Coordinator Name Role Phone Rancho Mariscal MD Primary Care Provider Binu Santana Jr Unavailable [phone] Allergies Allergen (clinical drug ingredient) Drug/Non Drug Allergy documented on EMR Reaction Allergy Type Onset Date Status Codeine Phosphate Unknown Drug Allergy Active Results Component Value Reference Range Notes Pathology Reviewed date:03/06/2024 08:28:09 AM Interpretation: Performing Lab:[facility], [address] [place] [phone] Notes/Report: Name: Tino Pompa Age/Sex: 48/M : 1975 Unit#: [id number] Attend Dr: Binu Chow MD Re02/29/24 Status : [facility] Location: [facility] Disch: SPEC : [id number] RECD : 02/29/24-7309 STATUS: FIORDALIZA MORA NUM: [id number] JAN: 02/29/24-[address]: Binu Chow MD ENTERED: 02/29/24-13 32 SP TYPE: Surgical OTHR DR: Rancho Mariscal MD ORDERED: HE Stain/3, Gross Micro L4, Special st. 2, AB/PAS Diagnosis Gastroesophageal leyla ction, biopsy: Squamocolumnar junctional mucosa with mild chronic inflammation; negati ve for intestinal metaplasia or dysplasia. Clinical History Pre-Op Dx: Screening Post-Op Dx: Normal colon, Camilo's Microscopic Description A. Microscopic secti ons examined. No metaplastic changes are seen, supported by AB/PAS stains (A). Material Received EG junction bx's Gross Description Received in formalin labeled ?EG junction bx's? are 4 koenig-pink irregular and rectangular tissue fragments ran ging from 0.3-0.45 cm, submitted in toto in a cassette labeled A. CEDS Special stains order ed and performed: AB/PAS on A. Copies To: Binu Chow MD [address] [place] [address] Rancho Mariscal MD [facility] Primary Care,[address] [place] [address] CONTINUED ON NEXT PAGE Name: BetinaenriqueTino C Age/Sex: 48/M : 1975 Unit#: [id number] Attend Dr: Binu Chow MD Re02/29/24 Status : [facility] Location: [facility] Disch: SPEC : [id number] RECD : 02/29/24-1 STATUS: FIORDALIZA MORA NUM: [id number] JAN: 02/29/24-[address]: Binu Chow MD ENTERED: 02/29/24 32 SP TYPE: Surgical OTHR DR: Rancho Mariscal MD ORDERED: LILA Stain/3, Gross Micro L4, Special st. 2, AB/PAS Signed (si gnature on file) Scarlett Olvera MD 03/03/24 1506 END OF REPORT Reason For Referral No Information Medications Medication SIG (Take, Route, Frequency, Duration) Notes Start Date End Date Status MiraLax (colon prep) 8.3 ounce ((238) grams mixed with Gatorade or Crystal Light orally begin at 5:00 p.m. the day before the procedure for 1 day 02/11/2024 Active Omeprazole 20 MG TAKE 1 CAPSULE BY [facility] EVERY DAY for 90 Active Zepbound 5 MG/0.5ML 0.5 mL Subcutaneous for 30 day(s) Active Simvastatin Active Immunizations Vaccine Route Administration Date Status Comme nts Influenza Unknown 04/19/2020 Refused Influenza Unknown 02/11/2024 Refused Social History Tobacco Use: Social History Observation Description Date Details (start date - stop date) Never Smoker NA - NA Tobacco Use/Smoking Question Answer Notes Patient is a nonsmoker Alcohol Screen Question Answer Notes Did you have a drink containing alcohol in the p ast year? No Points 0 Interpretation Negative Problems Problem Type SNOMED Code ICD Code Onset Dates Problem Status W/U Status Risk Notes Problem [id number] Special screening for malignant neoplasms, colon (Z12.11) Active confirmed Problem 643230356 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 (K22.70) Active confirmed Problem Dysphagia (53654774) Dysphagia, unspecified (R13.10) Active confirmed Problem 46294282 Erosive esophagitis (K22.10) Active confirmed Problem Camilo esophagus (257803458) Camilo esophagus (K22.70) Active confirmed Vital Signs Temperature 97.5 degrees Fahrenheit 02/11/2024 Blood pressure diastolic 00 mm Hg 02/11/2024 Height 69 in 02/11/2024 Blood pressure systolic 000 mm Hg 02/11/2024 Weight 241 lbs 02/11/2024 BMI 35.59 kg/m2 02/11/2024 Encounters Encounter Location Date Provider Diagnosis [facility] [address] [place] [id number] 02/29/2024 Binu Chow Jr Colon cancer screening Z12.11 and Camilo esophagus K22.70 [facility] [address] [place] [phone] 02/11/2024 Binu Chow Jr 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 K22.70 ; Special screening for malignant neoplasms, colon Z12.11 and Long-term current use of high risk medication other than anticoagulant Z79.899 [facility] [address] [place] [phone] 10/17/2023 Binu Chow Jr [facility] [address] [place] [phone] 12/26/2023 Binu Chow Jr [facility] [address] [place] [phone] 03/04/2024 Binu Chow Jr Assessments Encounter Date Diagnosis (ICD Code) Assessment Notes Treatment Notes Treatment Clinical Notes Section Notes 02/29/2024 Colon cancer screening (ICD-10 - Z12.11) 02/29/2024 Camilo esophagus (ICD-10 - K22.70) 02/11/2024 Special screening for malignant neoplasms, colon (ICD-10 - Z12.11) Colonoscopy material was printed We discussed Camilo's esophagus and gastroesophageal reflux disease today. We recommended he continue omeprazole. He is due for followup endoscopy in this will be arranged. He understands risks and benefits and agrees to proceed. Colon cancer screening will be arranged at the same time. He is advised to stop his GLP-1 agonist one week before the procedure. 02/11/2024 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 (ICD-10 - K22.70) We discussed Camilo's esophagus and gastroesophageal reflux disease today. We recommended he continue omeprazole. He is due for followup endoscopy in this will be arranged. He understands risks and benefits and agrees to proceed. Colon cancer screening will be arranged at the same time. He is advised to stop his GLP-1 agonist one week before the procedure. 02/11/2024 Long-term current use of high risk medication other than anticoagulant (ICD-10 - Z79.899) We discussed Camilo's esophagus and gastroesophageal reflux disease today. We recommended he continue omeprazole. He is due for followup endoscopy in this will be arranged. He understands risks and benefits and agrees to proceed. Colon cancer screening will be arranged at the same time. He is advised to stop his GLP-1 agonist one week before the procedure. Plan Of Treatment Future Test Test Name Order Date UPPER GI ENDOSCOPY 04/19/2020 UPPER GI ENDOSCOPY 07/16/2020 UPPER GI ENDOSCOPY 02/11/2024 COLONOSCOPY 02/11/2024 Next Appt Details Provider Name:Binu lezama Jr, 02/25/2025 10:20:00 AM, [address] [place] [address], [address], [place], [phone], Insurance Providers Payer Name Payer Address Payer Phone Subscriber Number Group Number Insured Name Patient Relationship to Insured Coverage Start Date Coverage End Date [facility] [address] [place] [address] [phone] [id number] TINO POMPA Self - patient is the insured Medical (General) History Medical History History ICD Code Hyperlipidemia CHRISTIE Elevated BMI Close left hip fracture Camilo's esophagus, EGD/, no dysplasi a, two-year followup Surgical History Surgery Date(Month/Year) nasal reconstruction Repair of left arm biceps tendon
== END 2024-09-30 09:49 | disposition home or self-care (01) ==
PROVIDERS: PCP Internal Medicine; Visit Provider Internal Medicine
DX: Z00.00 Encounter for general adult medical examination without abnormal findings (principal); E66.9 Obesity, unspecified; Z68.31 Body mass index [BMI] 31.0-31.9, adult; E78.00 Pure hypercholesterolemia, unspecified; G47.33 Obstructive sleep apnea (adult) (pediatric); K22.70 Barrett's esophagus without dysplasia; M25.812 Other specified joint disorders, left shoulder

== ENCOUNTER → 2024-09-30 09:06 | Outpatient (BNVA) | payer BC, SELFPAY | PROVIDERS: PCP Internal Medicine; Visit Provider Internal Medicine | DX: Z13.89 Encounter for screening for other disorder (principal) ==

== ENCOUNTER 2024-11-03 07:08 | Outpatient (REF) | payer BC, SELFPAY ==
--- NOTE | ~2024-11-03 | XR_ITS ---
CLINICAL HISTORY: M25.812 - Other specified joint disorders, left shoulder 4 view left shoulder Comparison: None Findings: Bones intact. No dislocations. Moderate degenerative change of the acromioclavicular joint and mild degenerative change of the left glenohumeral joint. No erosions. No radiopaque foreign body. IMPRESSION: 1. No acute findings 2. Degenerative changes as detailed. This document has been electronically signed by: Roger Gutierrez MD on 11/03/2024 09:44:22
[2024-11-03 07:25] LABS: MANUAL DIFF FLAG NO
[2024-11-03 08:03] LABS: Basophils Percent Auto 0.5 % (0-2); Eosinophils Absolute Auto 0.3 X10*3/uL (0.0-0.4); Hematocrit 47.8 % (42.0-52.0); Hemoglobin 15.7 g/dl (14.0-18.0); Imm Gran Abs Auto 0.01 X10*3/uL (0.00-0.03); Imm Gran Pct Auto 0.1 % (0.0-0.4); Lymphocytes Percent Auto 39.6 % (20-40); Mean Corpuscular HGB Conc 32.8 g/dl (31.0-36.0); Mean Corpuscular Hemoglobin 31.4 pg (27.0-33.0); Mean Corpuscular Volume 95.6 fL (80.0-98.0); Mean Platelet Volume 12.1 fL (9.4-12.4); Monocytes Absolute Auto 0.5 X10*3/uL (0.1-1.2); Monocytes Percent Auto 6.9 % (2-11); Neutrophils Absolute Auto 3.7 x10*3/uL (2.0-8.3); Neutrophils Percent Auto 48.9 % (45-73); Platelet Count 291 X10*3/uL (160-400); Red Cell Distribution Width 12.3 % (11.0-16.0); White Blood Count 7.5 X10*3/uL (4.8-10.8)
[2024-11-03 08:50] LABS: Alanine Aminotransferase 19 U/L (0-40); Albumin Level 4.1 g/dL (3.5-5.0); Alkaline Phosphatase 56 U/L (39-117); Anion Gap 12 (12-20); Aspartate Amino Transferase 24 U/L (5-37); Bilirubin Total 0.6 mg/dL (0.0-1.0); Blood Urea Nitrogen 11 mg/dL (9-16); Calcium 9.4 mg/dL (8.4-10.2); Carbon Dioxide 25 mmol/L (22-29); Chloride 109 mmol/L (96-108); Cholesterol 192 mg/dL (<200); Estimated Glomerular Filt Rate > 60; Glucose Fasting 86 mg/dL (60-99); Glucose Random 87 mg/dL (60-115); HDL Cholesterol 33 mg/dL (>40); LDL Cholesterol Calculated 125 mg/dL (<100); Sodium 142 mmol/L (135-145); Total Protein 7.4 g/dL (6.5-8.0); Triglycerides 170 mg/dL (<150)
[2024-11-03 09:07] LABS: Thyroid Stimulating Hormone 1.29 uIU/mL (0.32-4.0)
[2024-11-03 09:08] LABS: PSA,Total (Free>4and<10) 5.64 ng/mL (0.00-4.00)
[2024-11-03 09:18] LABS: Folate 14.7 ng/mL (> or = 4.0); Vitamin B12 739 pg/mL (200-900)
[2024-11-04 09:08] LABS: Follicle Stimulating Hormone 3.2 mIU/mL (1.4-12.8); Lutenizing Hormone 1.7 mIU/mL (1.5-9.3); Prolactin 5.8 ng/mL (2.0-18.0)
[2024-11-05 12:54] LABS: Free Prostate Spec Ag 0.6 ng/mL; Percent Free Prostate Spec Ag 13 % (calc) (>25); Prostate Specific Ag Total 4.8 ng/mL (< OR = 4.0)
[2024-11-10 13:59] LABS: Testosterone, Free 65.3 pg/mL (35.0-155.0); Testosterone, Total 610 ng/dL (250-1100)
[2024-11-16 06:53] LABS: Estradiol Ultra Sensitive 22 pg/mL (< OR = 29)
== END 2024-11-03 07:09 | disposition home or self-care (01) ==
LOC: HO.XRAY 07:08
PROVIDERS: Absent Provider Urology; PCP Internal Medicine; Visit Provider Internal Medicine
DX: R97.20 Elevated prostate specific antigen [PSA] (principal); R79.89 Other specified abnormal findings of blood chemistry; E78.00 Pure hypercholesterolemia, unspecified; M25.812 Other specified joint disorders, left shoulder; Z12.5 Encounter for screening for malignant neoplasm of prostate
CPT/HCPCS: 36415; 73030; 80053; 80061; 82607; 82670; 82746; 82947; 83001; 83002; 84146; 84153; 84154; 84402; 84403; 84439; 84443; 85025

== ENCOUNTER → 2024-11-03 07:26 | Outpatient (BNV) | payer BC, SELFPAY | PROVIDERS: Absent Provider Urology; PCP Internal Medicine; Visit Provider Radiology Vascular & Interventional Radiology | DX: M19.019 Primary osteoarthritis, unspecified shoulder (principal) | CPT/HCPCS: 73030 ==

== ENCOUNTER 2024-11-07 08:34 | Outpatient (AMB) | payer BC, SELFPAY ==
--- OUTSIDE RECORDS SUMMARY | 2024-11-07 08:47 | XMS_ITS ---
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 Encounters Encounter Location Date Provider Diagnosis [facility] [address] [place] [phone] 02/29/2024 Binu Chow Jr Colon cancer screening Z12.11 and Diallo esophagus K22.70 Assessments Encounter Date Diagnosis (ICD Code) Assessment Notes Treatment Notes Treatment Clinical Notes Section Notes 02/29/2024 Colon cancer screening (ICD-10 - Z12.11) 02/29/2024 Diallo esophagus (ICD-10 - K22.70) Plan Of Treatment Next Appt Details Provider Name:Binu lezama Jr, 02/25/2025 10:20:00 AM, [address] [place] [address], [address], [place], [phone], Progress Notes * ALLEY POMPA CDOB:1975 (49 yo M)Acc No.[id number]:02/29/2024 EGD and COL/MAC Patient:?ALLEY POMPA Provider:?Binu Chow MD :1975???Age:48 Y???Sex:Male Cordell e:02/29/2024 Address[address] [phone] Pcp:Rancho Mariscal MD Subjective: * Chief Complaints: * ???1. Diallo'e,screening. * Medical History:? Objective: * Vitals:? Assessment: * Assessment: 1.?Colon cancer screening - Z12.11 (Primary)???2.?Diallo esophagus - K22.70??? Plan: * Treatment: * Procedure Codes:?76091 DIAGN OSTIC COLONOSCOPY, 12133 UPPER GI ENDOSCOPY, BIOPSY * * The named appointment provid er may or may not be the originator of this progress note, and it is not deemed complete until electronically signed by the appointment provider. Sign off status: Pending * Provider:?Binu Chow MD Date:?0 02/29/2024 Generated for Sd burton/Ashley/Dcitting on:?11/07/2024 08:47 AM EDT
--- NOTE | 2024-11-07 09:06 | A.OFFVIS_ITS ---
Intake Visit Reasons: 4m/labs Intake Note: Patient is present for 4 month follow up/labs Urology Med: None Antibiotic Allergies: None Blood Thinner: None Instrumentation Specialist Required: No Accompanied by: Self / Same As Patient Allergies codeine Allergy (Intermediate, Verified 11/07/24 09:06) Hives Medication List - Last Reconciled 11/07/24 by Abdi Rodrigez MD ciprofloxacin HCl 500 mg PO BID multivitamin 1 tab PO DAILY tadalafil (Cialis) 5 mg PO DAILY tirzepatide (weight loss) 10 mg (0.5 mL) subcut QWEEK 4 weeks HPI Comments Details: 11/07/24-- History of Present Illness The patient is a 49-year-old male presenting with concerns related to an elevated Prostate-Specific Antigen (PSA). The primary reason for the visit was to review lab results which showed the PSA level higher than expected. Discussi ons during this visit explored potential prostate health issues including concerns about prostate cancer and an enlarged prostate. The patient is utilizing tadalafil (Cialis) daily with good results, although this medication is not directly associated with the elevated PSA concerns. As of this visit, his testosterone levels remain pending, and there are no significant urinary or prostate health symptoms noted. The plan, dictated by the visit's findings, considers a biopsy essential to determine the cause of the elevated PSA, with prostate cancer being a slower growing pathology if present. The details of potential outcomes, severity, and implications have been discussed in relation to PSA levels, with the patient informed about the usual slow progression of prostate cancer and the potential benign nature of an enlarged prostate contributing to his condition. He is aware of the importance of distinguishing these through confirmatory diagnostics. Urinary Symptoms Review - No specific urinary symptoms or frequency issues noted during visit. - No urinary incontinence or related urgency issues reported. - No mention of nocturnal symptoms or urinary pain/pressure. Results - Labs: Elevated Prostate-Specific Antigen (PSA) - Tests: Testosterone levels pending Discussion Notes During the consultation, I discussed with the patient the elevated Prostate- Specific Antigen (PSA) level found in recent lab tests, highlighting the importance of further investigation given the slight concern of potential prostate cancer, which appears in slow-growing forms. I explained the necessity of performing a biopsy to ascertain the exact cause of the elevated PSA, noting that in many cases increased PSA can indicate benign prostatic hyperplasia rather than cancerous growth. We reviewed the procedure for a prostate biopsy, including that it is generally performed under local anesthesia; options for anesthesia were discussed, and the patient acknowledged understanding. I informed the patient of common post- procedure expectations such as presence of blood in the urine and semen, and advised on following up with further PSA testing and MRI as part of active surveillance if the biopsy results indicate clinically insignificant findings. Possible courses of action, including prescription of medications to manage an enlarged prostate, were discussed should the biopsy show benign results. Plan Our approach is to confirm the cause of the elevated Prostate-Specific Antigen (PSA) level through a biopsy to discern whether it is due to benign prostatic hyperplasia or potential prostate cancer. A biopsy will help us provide a definitive diagnosis. We have agreed on local anesthesia for the procedure, though anesthesia options are available if preferred. The patient is informed that post-procedure he might notice blood in urine or semen. We will continue to monitor the pending testosterone levels and continue tadalafil (Cialis) without change as it aids the patient without impact on PSA. The patient will be advised on the timeline and expected communications regarding scheduling the biopsy procedure. Patient Instructions - Continue taking Cialis as prescribed. - The biopsy procedure will be scheduled; wait for confirmation from the office. - Expect some blood in urine or semen after the biopsy; normal healing may take up to three months. - Start the prescribed antibiotic two days prior to the biopsy as directed. - Arrange for someone to drive you home post-procedure. - Drink plenty of water post-procedure. - Contact the office if you experience severe pain, high fever, or excessive bleeding. - Wait for communication from the office regarding the exact date of the biopsy. Patient was informed and verbally consented to the use of an ambient scribe for clinic note documentation during this visit. 07/11/24--Tino is a 48-year-old male who is here with concerns about low testosterone and elevated PSA. He states that he feels that he is more irritable. He has been working out since October 2023 and does not feel that he is having any significant change in muscle mass he does use protein powder and creatinine supplements. He does not always have an a.m. erection. He denies loss of libido. Sfcbyvreijz-odkznbu-whejegg is ontirzepatide 7.5 mg subQ once a week. In review of lab work testosterone total is 421, free testosterone is 55.2 both low normal. PSA 01/05/2024 was 4.53 and was repeated 02/05/2024 was 3.34. I have discussed daily Cialis 5 mg and repeating both testosterone and PSA in 3-1/2 months. [facility] Medical History Colon cancer screening Low testosterone Left elbow fracture Closed left hip fracture Schatzki's ring Obstructive sleep apnea Hypercholesterolemia Obesity (BMI 30-39.9) Surgical History History of surgery on arm Hx of esophagogastroduodenoscopy History of nasal surgery Family History Mother Myocardial infarct Paternal Grandmother No problems noted. Paternal Grandfather Esophageal cancer Paternal Uncle Esophageal cancer Maternal Grandmother Breast cancer in situ Father Camilo esophagus Paternal Aunt Camilo esophagus Social History Housing: House Are you a primary client care consultant to a significant other at home: No Do you presently have visiting nurse or other home services: No Alcohol intake: current Comment: once q 3 months 1-2 drinks Patient Tobacco Use Status: Never used Tobacco e-Cigarette/Vaping Use: Never Used Second Hand Smoke Exposure: No service: No Current occupational status: employed Cognitive needs: No Hearing needs: No Vision needs: No Results AMB Urinalysis, Automated UA Leukoctes 0 Joseph/uL Last Edit by Carolina Cagle on 11/07/24 15:54 UA Nitrite Negative Last Edit by Carolina Cagle on 11/07/24 15:54 UA Urobilinogen 3.5 mg/dL Last Edit by Carolina Cagle on 11/07/24 15:54 UA Protein 0 mg/dL Last Edit by Carolina Cagle on 11/07/24 15:54 UA pH 6.0 Last Edit by Carolina Cagle on 11/07/24 15:54 UA Blood 0 Wong/uL Last Edit by Carolina Cagle on 11/07/24 15:54 UA Specific [place] 1.020 Last Edit by Carolina Cagle on 11/07/24 15:54 UA Ketone Negative Last Edit by Carolina Cagle on 11/07/24 15:54 UA Bilirubin 0 mg/dL Last Edit by Carolina Cagle on 11/07/24 15:54 UA Glucose 0 mg/dL Last Edit by Carolina Cagle on 11/07/24 15:54 Assessment & Plan Assessment & Plan Plan Prostate biopsy Orders: Orders AMB Urinalysis Automated Today R79.89 - Other specified abnormal findings of blood chemistry Medications: New ciprofloxacin HCl start 2 days prior to prostate biopsy 500 mg PO BID 10 tabs 0RF Refilled tadalafil (Cialis) [id number] [facility] [id number] Member [id number] PLEASE USE COUPON 5 mg PO DAILY 30 tabs 4RF Coding
== END 2024-11-07 09:53 | disposition home or self-care (01) ==
LOC: HO.HUSH 08:35
PROVIDERS: PCP Internal Medicine; Visit Provider Urology
DX: R79.89 Other specified abnormal findings of blood chemistry (principal)

== ENCOUNTER → 2024-11-07 08:34 | Outpatient (BNVA) | payer BC, SELFPAY | PROVIDERS: PCP Internal Medicine; Visit Provider Urology | DX: R97.20 Elevated prostate specific antigen [PSA] (principal); N40.0 Benign prostatic hyperplasia without lower urinary tract symptoms; R79.89 Other specified abnormal findings of blood chemistry | CPT/HCPCS: 81003 ==

== ENCOUNTER 2024-11-28 09:52 | Outpatient (AMB) | payer BC, SELFPAY ==
--- NOTE | 2024-11-28 09:57 | MHC.OFFVIS ---
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 Patient reports many years and his pain determines on what he is doing. No pain at the moment. He finds it difficult to lay down or go to the gym. Patient finds his pain on the lateral aspect of the shoulder. Patient hasn't taken medication for pain. IMPRESSION: 1. No acute findings 2. Degenerative changes as detailed. 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 Lanza is a 49-year-old right-hand dominant male who presents to the office today for evaluation of left shoulder pain for roughly the past 15 years. He has had multiple injuries over the past 15 years. He has not had any treatment to date at this time. He is starting a new job with the [employer] for the [employer]. [facility] Medical History Colon cancer screening Low testosterone Left elbow fracture Closed left hip fracture Schatzki's ring Obstructive sleep apnea Hypercholesterolemia Obesity (BMI 30-39.9) Surgical History History of surgery on arm Hx of esophagogastroduodenoscopy History of nasal surgery Family History Mother Myocardial infarct Paternal Grandmother No problems noted. Paternal Grandfather Esophageal cancer Paternal Uncle Esophageal cancer Maternal Grandmother Breast cancer in situ Father Camilo esophagus Paternal Aunt Camilo esophagus Social History (Updated 11/28/24 @ 10:01 by Marlo Noonan) Housing: House Are you a primary assisted living care manager to a significant other at home: No Do you presently have visiting nurse or other home services: No Alcohol intake: current Comment: once q 3 months 1-2 drinks Patient Tobacco Use Status: Never used Tobacco e-Cigarette/Vaping Use: Never Used Second Hand Smoke Exposure: No service: No Current occupational status: employed 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 No ecchymosis, erythema, or edema. Full shoulder ROM in all planes. Pain with the last 20 degrees of forward flexion and abduction. Negative cross-body reach. Negative empty can. Negative drop arm. Pain and 3/5 strength resistance with lift-off. Negative belly-press. NVI. Office Procedures AMB Joint Injection/Aspiration Joint Injection/Aspiration Primary Site: left shoulder Prep: site was prepped using aseptic technique, ethochloride spray was applied and injection warnings given Injected: 80 mg of, DepoMedrol, with 8 mL of (2% plain lido ) and in the subcromial space Approach Used: posterolateral Procedure: The patient tolerated the procedure well, but had some pain with the injection and there was some relief with the local anesthesia Coding 22322 - Large joint Procedure code (CPT) selection complete Assessment & Plan Assessment & Plan (1) Arthritis of left acromioclavicular joint: Code(s): M19.012 - Primary osteoarthritis, left shoulder Category: Medical (2) Painful arc syndrome of left shoulder: Code(s): M75.102 - Unspecified rotator cuff tear or rupture of left shoulder, not specified as traumatic Category: Medical Plan Mr. Lanza is a 49-year-old right-hand dominant male who presents to the office today for evaluation of left shoulder pain for roughly the past 15 years. He has had multiple injuries over the past 15 years. He has not had any treatment to date at this time. He is starting a new job with the [employer] of [employer] for the [employer]. While in the office today the patient I discussed conservative treatment including physical therapy and cortisone injection. The patient was offered a cortisone injection in the left shoulder with 80 mg of DepoMedrol. The patient was explained the risks, benefits, and alternatives to receiving this injection. After receiving consent for the injection, the patient had the procedure done while in the office today. The patient tolerated the procedure well with no complications. Patient is also amenable to attend physical therapy. Therefore, an order has been placed at this time. If the patient is not doing any better in the next 6 weeks consideration of MRI imaging would be the next step. Follow-up will be 6 weeks, or sooner if needed X-rays of the left shoulder which were obtained which were obtained on 11/03/2024 were reviewed by me, Melida Leo PA-C, revealed no acute fracture or dislocation. There is moderate degenerative changes of the AC joint. Orders: Orders PT Evaluation and Treatment Today M19.012 - Primary osteoarthritis, left shoulder, M75.102 - Unspecified rotator cuff tear or rupture of left shoulder, not specified as traumatic Coding Level of Care Code New Pt Level 4 (91593) Diagnoses Arthritis of left acromioclavicular joint M19.012 Painful arc syndrome of left shoulder M75.102 CPT Codes Coding - 97093 Large joint: 31886 - Large joint ([id number])
[2024-11-28 10:01] VITALS: BMI 28.9
--- OUTSIDE RECORDS SUMMARY | 2024-11-28 10:31 | XMS_ITS ---
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 Encounters Encounter Location Date Provider Diagnosis [facility] [address] [place] [phone] 02/29/2024 Binu Chow Jr Colon cancer screening Z12.11 and Diallo esophagus K22.70 Assessments Encounter Date Diagnosis (ICD Code) Assessment Notes Treatment Notes Treatment Clinical Notes Section Notes 02/29/2024 Colon cancer screening (ICD-10 - Z12.11) 02/29/2024 Diallo esophagus (ICD-10 - K22.70) Plan Of Treatment Next Appt Details Provider Name:Binu lezama Jr, 02/25/2025 10:20:00 AM, [address] [place] [address], [address], [place], [id number], Progress Notes * ALLEY POMPA CDOB:1975 (49 yo M)Acc No.[id number]:02/29/2024 EGD and COL/MAC Patient:?ALLEY POMPA Provider:?Binu Chow MD :1975???Age:48 Y???Sex:Male Cordell e:02/29/2024 Address[address] [id number] Pcp:Rancho Mariscal MD Subjective: * Chief Complaints: * ???1. Diallo'e,screening. * Medical History:? Objective: * Vitals:? Assessment: * Assessment: 1.?Colon cancer screening - Z12.11 (Primary)???2.?Diallo esophagus - K22.70??? Plan: * Treatment: * Procedure Codes:?48550 DIAGN OSTIC COLONOSCOPY, 35138 UPPER GI ENDOSCOPY, BIOPSY * * The named appointment provid er may or may not be the originator of this progress note, and it is not deemed complete until electronically signed by the appointment provider. Sign off status: Pending * Provider:?Binu Chow MD Date:?0 02/29/2024 Generated for Sd burton/Ashley/Dcitting on:?11/28/2024 10:31 AM EDT
== END 2024-11-28 10:23 | disposition home or self-care (01) ==
LOC: HO.HOS 09:53
PROVIDERS: PCP Internal Medicine; Visit Provider Physician Assistant
DX: M19.012 Primary osteoarthritis, left shoulder (principal); M75.102 Unspecified rotator cuff tear or rupture of left shoulder, not specified as traumatic
CPT/HCPCS: 20610; 99204

== ENCOUNTER → 2024-11-28 09:52 | Outpatient (BNVA) | payer BC, SELFPAY | PROVIDERS: PCP Internal Medicine; Visit Provider Physician Assistant | DX: M25.512 Pain in left shoulder (principal); M75.102 Unspecified rotator cuff tear or rupture of left shoulder, not specified as traumatic | CPT/HCPCS: 20610; J1010; J2003 ==

== ENCOUNTER 2024-12-05 07:58 | Outpatient (REF) | payer BC, SELFPAY ==
--- OUTSIDE RECORDS SUMMARY | 2024-02-29 08:30 | XMS_ITS ---
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 Encounters Encounter Location Date Provider Diagnosis [facility] Outpatient [address] [place] [phone] 02/29/2024 Binu Chow Jr Colon cancer screening Z12.11 and Diallo esophagus K22.70 Assessments Encounter Date Diagnosis (ICD Code) Assessment Notes Treatment Notes Treatment Clinical Notes Section Notes 02/29/2024 Colon cancer screening (ICD-10 - Z12.11) 02/29/2024 Diallo esophagus (ICD-10 - K22.70) Plan Of Treatment Next Appt Details Provider Name:Binu lezama Jr, 02/25/2025 10:20:00 AM, [address] [place] [address], Suite [facility], [place], [address], Progress Notes * ALLEY POMPA CDOB:1975 (49 yo M)Acc No.[id number]:02/29/2024 EGD and COL/MAC Patient: ALLEY FORREST Provider: Liza Chow MD :1975 A ge:48 Y S ex:Male Date:02/29/2024 Address: [address] [facility] [address] [id number] Pcp:Rancho Mariscal MD Subjective: * Chief Complaints: * 1 . Diallo'e,screening. * Medical History: Objective: * Vitals: Assessment: * Assessment: 1. C olon cancer screening - Z12.11 (Primary) 2 . B arrett esophagus - K22.70 Plan: * Treatment: * Procedure Codes: 4 5378 DIAGNOSTIC COLONOSCOPY, 79590 UPPER GI ENDOSCOPY, BIOPSY * * The named appointment provid er may or may not be the originator of this progress note, and it is not deemed complete until electronically signed by the appointment provider. Sign off status: Pending * Provider: Liza Chow MD Date: 0 02/29/2024 Generated for Sd burton/Ashley/Dcitting on: 0 12/05/2024 08:01 AM EDT
--- NOTE | 2024-12-05 08:38 | W.PM.OPN ---
Operative Note Operative Note Date of Service: 12/05/24 Narrative: PreOperative Diagnosis:? ? Elevated PSA Post Operative Diagnosis:??Elevated PSA Procedure:?1. Transrectal ultrasound guided biopsy of the prostate 12 core 2. Transrectal ultrasound measurement of prostate 3. Transrectal ultrasound guided pudendal nerve block Surgeon:?Dr Abdi Rodrigez Anesthesia:? Local, lidocaine 1% 10 mL Indications for procedure: Elevated PSA Procedure: Preoperative antibiotics confirmed. After informed consent was verified the patient was placed on the procedure table in left lateral position. Patient identity confirmed. Safety pause time-out performed. Digital rectal exam performed to dilate rectal sphincter, iodine mixed with lubricant jelly 30 cc placed per rectum. Ultrasound probe was placed per rectum. The prostate was visualized. The prostate was measured width 3.47 cm, height 4.60 cm, length 4.82 cm with a volume of 40.3 mL. An ultrasound guided pudendal nerve block was performed using 10 cc of 1% lidocaine. A 12 core biopsy was performed from the left base, left mid, left apex and right base, mid, apex 2 biopsies from each section. The ultrasound probe was removed and digital palpation of the prostate for 1-2 minutes for hemostasis was performed. The patient tolerated the procedure well. Complications: None
[2024-12-05] MEDS: Lidocaine HCl 1 % MPF 30 ML VIAL SUBCUT (08:53)
== END 2024-12-05 07:59 | disposition home or self-care (01) ==
LOC: HO.US 07:58
PROVIDERS: PCP Internal Medicine; Visit Provider Urology
DX: R97.20 Elevated prostate specific antigen [PSA] (principal)
CPT/HCPCS: 55700; 76942; 88305; J2003

== ENCOUNTER → 2024-12-05 07:58 | Outpatient (BNV) | payer BC, SELFPAY | PROVIDERS: PCP Internal Medicine; Visit Provider Urology | DX: R97.20 Elevated prostate specific antigen [PSA] (principal) | CPT/HCPCS: 55700; 76872; 76942 ==

== ENCOUNTER 2024-12-18 12:48 | Outpatient (AMB) | payer BC, SELFPAY ==
--- OUTSIDE RECORDS SUMMARY | 2024-02-29 08:30 | XMS_ITS ---
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 Encounters Encounter Location Date Provider Diagnosis [facility] Outpatient [address] [place] [phone] 02/29/2024 Binu Chow Jr Colon cancer screening Z12.11 and Diallo esophagus K22.70 Assessments Encounter Date Diagnosis (ICD Code) Assessment Notes Treatment Notes Treatment Clinical Notes Section Notes 02/29/2024 Colon cancer screening (ICD-10 - Z12.11) 02/29/2024 Diallo esophagus (ICD-10 - K22.70) Plan Of Treatment Next Appt Details Provider Name:Binu lezama Jr, 02/25/2025 10:20:00 AM, [address] [place] [address], Suite [facility], [place], [address], Progress Notes * ALLEY POMPA CDOB:1975 (49 yo M)Acc No.[id number]:02/29/2024 EGD and COL/MAC Patient: ALLYE FORREST Provider: Liza Chow MD :1975 A ge:48 Y S ex:Male Date:02/29/2024 Address: [address] [id number] Pcp:Rancho Mariscal MD Subjective: * Chief Complaints: * 1 . Diallo'e,screening. * Medical History: Objective: * Vitals: Assessment: * Assessment: 1. C olon cancer screening - Z12.11 (Primary) 2 . B arrett esophagus - K22.70 Plan: * Treatment: * Procedure Codes: 4 5378 DIAGNOSTIC COLONOSCOPY, 16408 UPPER GI ENDOSCOPY, BIOPSY * * The named appointment provid er may or may not be the originator of this progress note, and it is not deemed complete until electronically signed by the appointment provider. Sign off status: Pending * Provider: Liza Chow MD Date: 0 02/29/2024 Generated for Sd burton/Ashley/Dcitting on: 0 12/18/2024 12:53 PM EDT
--- NOTE | 2024-12-18 12:37 | A.OFFVIS_ITS ---
Intake Visit Reasons: Prostate biopsy results Allergies codeine Allergy (Intermediate, Verified 11/28/24 10:01) Hives Medication List - Last Reconciled 12/18/24 by Abdi Rodrigez MD finasteride (Proscar) 5 mg PO DAILY multivitamin 1 tab PO DAILY tadalafil (Cialis) 5 mg PO DAILY tirzepatide (weight loss) 10 mg (0.5 mL) subcut QWEEK 4 weeks HPI Comments Details: 12/18/24--Tino is being followed for elevated PSA. He is status post prostate biopsy on 12/05/24 trans rectal ultrasound estimated prostate volume 40.3 mL. I have reviewed pathology results prostate biopsies benign with mild prostatitis. He states he did well after the biopsy procedure denies any irritative voiding symptoms. I have discussed therapeutic management with finasteride 5 mg for 6 months with repeat PSA. 11/07/24--PSA reviewed 11/03/2024 5.64 and 4.8. Plan for prostate biopsy discussed at that time. 07/11/24--Tino is a 48-year-old male who is here with concerns about low testosterone and elevated PSA. He states that he feels that he is more irritable. He has been working out since October 2023 and does not feel that he is having any significant change in muscle mass he does use protein powder and creatinine supplements. He does not always have an a.m. erection. He denies loss of libido. Hmstdglqtpj-vhkscff-fpxbewv is ontirzepatide 7.5 mg subQ once a week. In review of lab work testosterone total is 421, free testosterone is 55.2 both low normal. PSA 01/05/2024 was 4.53 and was repeated 02/05/2024 was 3.34. I have discussed daily Cialis 5 mg and repeating both testosterone and PSA in 3-1/2 months. [facility] Medical History Colon cancer screening Low testosterone Left elbow fracture Closed left hip fracture Schatzki's ring Obstructive sleep apnea Hypercholesterolemia Obesity (BMI 30-39.9) Surgical History History of surgery on arm Hx of esophagogastroduodenoscopy History of nasal surgery Family History Mother Myocardial infarct Paternal Grandmother No problems noted. 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 Cognitive needs: No Hearing needs: No Vision needs: No Review of Systems Const All systems reviewed & are unremarkable except as noted in HPI and below Reports no additional complaints Eyes Reports no additional complaints ENT Reports no additional complaints Card Reports no additional complaints Resp Reports no additional complaints GI Reports no additional complaints Reports as per HPI Musc Reports no additional complaints Skin/Breast Reports system reviewed and no additional complaints, except as documented Neuro Reports no additional complaints Psych Reports no additional complaints Endo Reports no additional complaints Ricky/Lymph Reports no additional complaints Aller/Immun Reports no additional complaints Telehealth Telehealth Telehealth Platform: [employer] Location of provider rendering services: practice address Location of patient: address on file Patient Identification confirmed using: Name, : Yes Telehealth method: voice only Patient verbally consented to treatment: Yes Patient verbally consented to billing insurance company: Yes Patient informed of any privacy concerns related to visit: Yes Minutes spent on Phone/Video with Pt.: 13 Assessment & Plan Assessment & Plan (1) PSA elevation: Comment: Prostate biopsy 12/05/2024, benign, mild prostatitis Code(s): R97.20 - Elevated prostate specific antigen [PSA] Category: Medical (2) BPH (benign prostatic hyperplasia): Code(s): N40.0 - Benign prostatic hyperplasia without lower urinary tract symptoms Category: Medical (3) Prostatitis: Code(s): N41.9 - Inflammatory disease of prostate, unspecified Category: Medical Plan Proscar 5 mg daily for 6 months. Recheck PSA at that time Orders: Orders PSA,Total (Free>4and<10) 5 Months R97.20 - Elevated prostate specific antigen [PSA] Medications: New finasteride (Proscar) 5 mg PO DAILY 90 tabs 1RF Discontinued ciprofloxacin HCl start 2 days prior to prostate biopsy Discontinued Reason: Patient Completed Course 500 mg PO BID 10 tabs 0RF Patient Instructions: The patient had an opportunity to ask questions regarding treatment plan. The patient expressed understanding and agreement with the above treatment plan. The patient is aware they should contact our office by phone for worsening of their current condition or the appearance of new symptoms. Compliance is encouraged with any medications and followup testing that is ordered. It is a privilege to be allowed the opportunity to participate in the urologic care of your patient. If you have any questions or concerns regarding treatment for the above conditions please do not hesitate to contact me. The office telephone contact is [phone]. This note is constructed in part using voice recognition software. While every effort has been made to ensure accuracy delivery of shopping news errors may have been included. Yours sincerely, Abdi Rodrigez MD Coding Level of Care Code Tele Est Pt Level 4 (22775) Diagnoses PSA elevation R97.20 BPH (benign prostatic hyperplasia) N40.0 Prostatitis N41.9
== END 2024-12-18 12:54 | disposition home or self-care (01) ==
LOC: HO.HUSH 12:48
PROVIDERS: PCP Internal Medicine; Visit Provider Urology
DX: R97.20 Elevated prostate specific antigen [PSA] (principal); N40.0 Benign prostatic hyperplasia without lower urinary tract symptoms; N41.9 Inflammatory disease of prostate, unspecified
CPT/HCPCS: 99214

== ENCOUNTER 2025-01-09 14:13 | Outpatient (AMB) | payer BC, SELFPAY ==
--- OUTSIDE RECORDS SUMMARY | 2024-02-29 08:30 | XMS_ITS ---
Author Organization [facility] Address [address] [place] [address] [place] [phone] Care Team Providers Care Benefits Advisor Name Role Phone Rancho Mariscal MD Primary Care Provider Binu Santana Jr Unavailable [phone] REASON FOR VISIT diallo'e,screening Problems Problem Type SNOMED Code ICD Code Onset Dates Problem Status W/U Status Risk Notes Problem Diallo esophagus (K22.70) Active confirmed Encounters Encounter Location Date Provider Diagnosis [facility] Outpatient [address] [place] [phone] 02/29/2024 Binu Chow Jr Colon cancer screening Z12.11 and Diallo esophagus K22.70 Assessments Encounter Date Diagnosis (ICD Code) Assessment Notes Treatment Notes Treatment Clinical Notes Section Notes 02/29/2024 Colon cancer screening (ICD-10 - Z12.11) 02/29/2024 Diallo esophagus (ICD-10 - K22.70) Plan Of Treatment Next Appt Details Provider Name:Binu lezama Jr, 02/25/2025 10:20:00 AM, [address] [place] [address], Suite [facility], [place], [address], Progress Notes * ALLEY POMPA CDOB:1975 (49 yo M)Acc No.[id number]:02/29/2024 EGD and COL/MAC Patient: ALLEY FORREST Provider: Liza Chow MD :1975 A ge:48 Y S ex:Male Date:02/29/2024 Address: [address] [facility] [address] [id number] Pcp:Rancho Mariscal MD Subjective: * Chief Complaints: * 1 . Diallo'e,screening. * Medical History: Objective: * Vitals: Assessment: * Assessment: 1. C olon cancer screening - Z12.11 (Primary) 2 . B arrett esophagus - K22.70 Plan: * Treatment: * Procedure Codes: 4 5378 DIAGNOSTIC COLONOSCOPY, 25567 UPPER GI ENDOSCOPY, BIOPSY * * The named appointment provid er may or may not be the originator of this progress note, and it is not deemed complete until electronically signed by the appointment provider. Sign off status: Pending * Provider: Liza Chow MD Date: 0 02/29/2024 Generated for Sd burton/Ashley/Dcitting on: 0 01/09/2025 02:15 PM EDT
--- OUTSIDE RECORDS SUMMARY | 2025-01-09 14:15 | XMS_ITS | Encounter Summary ---
Author Organization [facility] Address [address] [place] [address] Phone Care Team Providers Care Community Outreach Manager Name Role Phone Rancho Mariscal MD Primary Care Provider [phone] Encounter Details Date Type Department Care Team (Late st Contact Info) Description 01/04/2022 Procedure Pass [address] [place] [address] Social History Tobacco Use Types Packs/Day Years Used Date Smoking Tobacco: Never Assessed Sex and Gender Information Value Date Recorded Sex Assigned at Not on file Legal Sex Male 5:05 PM EDT Gender Identity Not on file Sexual Orientation Not on file documented as of this encounter Last Filed Vital Signs Vital Sign Reading Time Taken Comments Blood Pressure - - Pulse - - Temperature - - Respiratory Rate - - Oxygen Saturation - - Inhaled Oxygen Concentration - - Weight 115.7 kg (255 lb) 01/06/2022 1:06 PM EDT Height 175.3 cm (5' 9 ) 01/06/2022 1:06 PM EDT Body Mass Index 37.66 01/06/2022 1:06 PM EDT documented in this encounter Plan of Treatment Not on file documented as of this encounter Visit Diagnoses Not on filedocumented in this encounter Care Teams Community Outreach Manager Relationship Specialty Start Date End Date Rancho Mariscal MD [address] [place] [id number] PCP - General Internal Medicine 01/03/22 documented as of this encounter Additional Source Comments The information contained in this document represents components of the legal health record. It is not the complete legal health record.[facility]
[2025-01-09 14:16] VITALS: BMI 28.9
--- NOTE | 2025-01-09 14:16 | MHC.OFFVIS ---
Vital Signs 01/09/25 14:16 Height 5 ft 9 in Weight 196 lb BMI 28.9 Intake Visit Reasons: OV-LT shoulder Pain s/p Injection 11/28/24 Intake Note: Tino is a 49 year old right hand dominant male who presents today with complaints of Left Shoulder Pain. Last injection was administered to the left shoulder on 11/28/24. Today he presents for a follow up s/p Physical Therapy. Patient reports injection went well, states injection helped with his pain. He had not contacted by physical therapy to start his visits. Allergies codeine Allergy (Intermediate, Verified 01/09/25 14:22) Hives HPI HPI OV-LT shoulder Pain s/p Injection 11/28/24: Details: Mr. Lanza is a 49-year-old right-hand dominant male who presents to the office today for follow up of left shoulder pain. At his last appointment the patient received a cortisone injection to the left shoulder. He reports that he had significant relief the next day but over the next 2 weeks his pain gradually returned back to baseline. Unfortunately the patient was unable to attend physical therapy. [facility] Medical History Colon cancer screening Low testosterone Left elbow fracture Closed left hip fracture Schatzki's ring Obstructive sleep apnea Hypercholesterolemia Obesity (BMI 30-39.9) Surgical History History of surgery on arm Hx of esophagogastroduodenoscopy History of nasal surgery Family History Mother Myocardial infarct Paternal Grandmother No problems noted. 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 No ecchymosis, erythema, or edema. Full shoulder ROM in all planes. Pain with the last 20 degrees of forward flexion and abduction. Negative cross-body reach. Negative empty can. Negative drop arm. Pain and 3/5 strength resistance with lift-off. Negative belly-press. NVI. Assessment & Plan Assessment & Plan (1) Painful arc syndrome of left shoulder: Code(s): M75.102 - Unspecified rotator cuff tear or rupture of left shoulder, not specified as traumatic Category: Medical Plan Mr. Lanza is a 49-year-old right-hand dominant male who presents to the office today for follow up of left shoulder pain. At his last appointment the patient received a cortisone injection to the left shoulder. He reports that he had significant relief the next day but over the next 2 weeks his pain gradually returned back to baseline. Unfortunately the patient was unable to attend physical therapy. While in the office today he was provided with the physical therapy contact information to make an appointment. He is willing to perform 6 weeks of physical therapy. After 6 weeks of physical therapy he will contact the office to let me know how he is feeling. If he is not experiencing any relief after physical therapy in the next step would be to order an MRI to further evaluate the integrity of the left shoulder and surrounding structures. He will follow up in 6 weeks by telephone, sooner if needed. Coding Level of Care Code Est Pt Level 3 (14611) Diagnoses Painful arc syndrome of left shoulder M75.102
== END 2025-01-09 14:37 | disposition home or self-care (01) ==
LOC: HO.HOS 14:14
PROVIDERS: PCP Internal Medicine; Visit Provider Physician Assistant
DX: M75.102 Unspecified rotator cuff tear or rupture of left shoulder, not specified as traumatic (principal)
CPT/HCPCS: 99213

== ENCOUNTER 2025-01-15 09:36 | Outpatient (AMB) | payer BC, SELFPAY ==
--- OUTSIDE RECORDS SUMMARY | 2024-02-29 08:30 | XMS_ITS ---
Author Organization [facility] Address [address] [place] [address] [place] [id number] Care Team Providers Care Grinder Machine Setter Name Role Phone Rancho Mariscal MD Primary Care Provider Binu Santana Jr Unavailable [phone] REASON FOR VISIT diallo'e,screening Problems Problem Type SNOMED Code ICD Code Onset Dates Problem Status W/U Status Risk Notes Problem Diallo esophagus (K22.70) Active confirmed Encounters Encounter Location Date Provider Diagnosis [facility] [place] [address] [place] [phone] 02/29/2024 Binu Chow Jr Colon cancer screening Z12.11 and Diallo esophagus K22.70 Assessments Encounter Date Diagnosis (ICD Code) Assessment Notes Treatment Notes Treatment Clinical Notes Section Notes 02/29/2024 Colon cancer screening (ICD-10 - Z12.11) 02/29/2024 Diallo esophagus (ICD-10 - K22.70) Plan Of Treatment Next Appt Details Provider Name:Binu lezama Jr, 02/25/2025 10:20:00 AM, [address] [place] [address], Suite [facility], [place], [address], Progress Notes * ALLEY POMPA CDOB:1975 (49 yo M)Acc No.[id number]:02/29/2024 EGD and COL/MAC Patient: ALLEY FORREST Provider: Liza Chow MD :1975 A ge:48 Y S ex:Male Date:02/29/2024 Address: [address] [id number] Pcp:Rancho Mariscal MD Subjective: * Chief Complaints: * 1 . Diallo'e,screening. * Medical History: Objective: * Vitals: Assessment: * Assessment: 1. C olon cancer screening - Z12.11 (Primary) 2 . B arrett esophagus - K22.70 Plan: * Treatment: * Procedure Codes: 4 5378 DIAGNOSTIC COLONOSCOPY, 59626 UPPER GI ENDOSCOPY, BIOPSY * * The named appointment provid er may or may not be the originator of this progress note, and it is not deemed complete until electronically signed by the appointment provider. Sign off status: Pending * Provider: Liza Chow MD Date: 0 02/29/2024 Generated for Sd burton/Ashley/Dcitting on: 0 01/15/2025 09:59 AM EDT
--- NOTE | 2025-01-15 09:45 | MHC.PC.OV ---
Vital Signs 01/15/25 09:46 Height 5 ft 9 in Weight 194 lb BMI 28.6 BP 112/76 Blood Pressure Location Lt brachial Position Sitting Respiration 18 Pulse 96 Pulse Source Pulse Oximeter Temp 97.1 F Temp Source Temporal Artery Scan Pulse Oximetry (%) 97 Oxygen Delivery Method Room Air Intake Visit Reasons: obesity Allergies codeine Allergy (Intermediate, Verified 01/15/25 09:46) Hives Medication List - Last Reconciled 01/15/25 by Rancho Mariscal MD finasteride (Proscar) 5 mg PO DAILY multivitamin 1 tab PO DAILY tadalafil (Cialis) 5 mg PO DAILY tirzepatide (weight loss) 10 mg (0.5 mL) subcut QWEEK 4 weeks Tobacco use date assessed: 01/15/25 Dental Screening Dental Screen Date: 01/15/25 Did you have a dental visit in the last 12 months?: Yes Did you have a dental problem in the last 6 months where you did not have access to dental care?: No Was dental information given to patient?: Patient has dentist [facility] Medical History Colon cancer screening Low testosterone Left elbow fracture Closed left hip fracture Schatzki's ring Obstructive sleep apnea Hypercholesterolemia Obesity (BMI 30-39.9) Surgical History History of surgery on arm Hx of esophagogastroduodenoscopy History of nasal surgery Family History Mother Myocardial infarct Paternal Grandmother No problems noted. 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 1. Little interest or pleasure in doing things: not at all 2. Feeling down, depressed, or hopeless: not at all 3. Trouble falling or staying asleep, or sleeping too much: not at all 4. Feeling tired or having little energy: not at all 5. Poor appetite or overeating: not at all 6. Feeling bad about yourself - or that you are a failure or have let yourself or your family down: not at all 7. Trouble concentrating on things, such as reading the newspaper or watching television: not at all 8. Moving or speaking so slowly that other people could have noticed. Or the opposite - being so fidgety or restless that you have been moving around a lot more than usual: not at all 9. Thoughts that you would be better off or of hurting yourself in some way: not at all Total score: 0 Source: Developed by Drs. Nasmi Thacker, Trupti Kaur, Clayton Krause and colleagues, with an educational karly from [employer]. Thrive Questionnaire Date Thrive assessed: 09/28/24 I am a: Patient What is your living situation today?: I have a steady place to live Within the past 12 months, did the food you bought not last and you didn't have the money to get more?: Never true Within the past 12 months, did you worry whether your food would run out before you got money to buy more?: Never true Do you have trouble paying for medicines?: No Do you have trouble getting transportation to medical appointments?: No Do you have trouble paying your heating and electricity bill?: No Do you have trouble taking care of your child, family member or friend?: No Do you have trouble with day-to-day activities such as bathing, preparing meals, shopping, managing finances, etc.?: No Are you currently unemployed and looking for a job?: No Are you interested in more education?: Yes Please select the resources that you would like help with: None Currently or been in a relationship where the following occur: No concerns reported THRIVE Score: 0 AUDIT C Alcohol Use Questionnaire (AUDIT-C) 1. How often do you have a drink containing alcohol?: Monthly or less 2. How many drinks containing alcohol do you have on a typical day when you are drinking?: 1 or 2 3. How often do you have six or more drinks on one occasion?: Never Total Score: 1 LEAH-7 AMB Questionnaire LEAH-7 Date LEAH - 7 assessed: 09/30/24 Feeling nervous, anxious, or on edge: 0 = Not at all Not being able to stop or control worryin = Not at all Worrying too much about different things: 0 = Not at all Trouble relaxin = Not at all Being so restless that it is hard to sit still: 0 = Not at all Becoming easily annoyed or irritable: 0 = Not at all Feeling afraid as if something awful might happen: 0 = Not at all Total LEAH-7 score (0-4 normal; 5-9 mild; 10-14 moderate; 15-21 severe): 0 Source: Developed by Drs. Nasim Thacker, Trupti Kaur, Clayton Krause and colleagues, with an educational karly from [employer]. Physical exam (Primary Care) Vital Signs: Last Vital Signs Temp 97.1 F 01/15/25 09:46 Pulse 96 01/15/25 09:46 Resp 18 01/15/25 09:46 BP 112/76 01/15/25 09:46 Pulse Ox 97 01/15/25 09:46 Oxygen Delivery Method Room Air 01/15/25 09:46 BMI result Body Mass Index 28.6 Tobacco/Smoking Status: Tobacco use Status Tobacco use date assessed 01/15/25 01/15/25 09:46 Patient Tobacco Use Status Never used Tobacco 01/15/25 09:46 e-Cigarette/Vaping Use Never Used 01/15/25 09:46 PHQ-9: PHQ-9 Score PHQ-9: Total score 0 01/15/25 10:01 Thrive Assessment: Date of Thrive Assessment Date Thrive assessed 09/28/24 01/15/25 09:46 Currently or been in a relationship where the following occur: No concerns reported Const General: alert; No acute distress Eyes Conjunctivae: conjunctivae normal Resp Auscultation: clear to auscultation bilaterally Cardio Rate: regular rate Rhythm: regular rhythm GI Inspection: Yes normal to inspection Extrem General: Yes normal to inspection and No edema Coding Level of Care Code Est Pt Level 4 (80912) Diagnoses Overweight (BMI 25.0-29.9) E66.3 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 K22.70 Camilo's esophagus type: without dysplasia BPH (benign prostatic hyperplasia) N40.0 Painful arc syndrome of left shoulder M75.102 Assessment & Plan Assessment & Plan (1) Overweight (BMI 25.0-29.9): Code(s): E66.3 - Overweight Category: Medical Plan: Continue with diet and exercise (2) Barretts esophagus: Code(s): K22.70 - 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 Category: Medical Qualifiers: Camilo's esophagus type: without dysplasia Qualified Code(s): K22.70 - 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 Plan: Avoid the foods that causes that usually spicy foods, tomato products, juices, coffee, soda and foods that your sensitive to. After eating do not lie down, allow 3-4 hours before in lie down. And keep the head of bed above 30 degrees to avoid the acid from going up. (3) BPH (benign prostatic hyperplasia): Code(s): N40.0 - Benign prostatic hyperplasia without lower urinary tract symptoms Category: Medical Plan: Patient has seen Urology and had biopsy benign (4) Painful arc syndrome of left shoulder: Code(s): M75.102 - Unspecified rotator cuff tear or rupture of left shoulder, not specified as traumatic Category: Medical Plan: Patient had some injections seen Orthopedics and advised physical therapy Plan History of Present Illness The patient is a 49-year-old male presenting for a follow-up visit after being last seen in September for a physical exam. The patient has a history of hypercholesterolemia, with recent blood work in October 2024 showing triglycerides at 170 mg/dL, which is above the desired level of 150 mg/dL. The LDL cholesterol was recorded at 125 mg/dL, which is within the acceptable range below 130 mg/dL. The patient suffers from obstructive sleep apnea but is unable to tolerate CPAP therapy. He also has Camilo's esophagus, which is being monitored. The patient has benign prostatic hyperplasia (BPH) and underwent a prostate biopsy due to elevated PSA levels. The biopsy, performed on December 05, 2024, via transrectal ultrasound, revealed a prostate volume of 40.3 cc and mild prostatitis. He was prescribed finasteride 5 mg daily for management. The patient experienced left shoulder pain and received an injection on November 28, 2024. He was advised to undergo physical therapy but has not been able to attend due to insurance changes. The patient is overweight and has been working on weight management, having lost approximately 90 pounds. He engages in regular physical activity by walking his dog daily. Health Maintenance - Colonoscopy up to date as of March 2024 - Blood work in October 2024 showed normal blood count, electrolytes, renal function, blood sugar, liver function, and thyroid levels - Discussed shingles vaccination, highlighting its effectiveness in reducing shingles risk Social History - Employment: Patient has a new job, resulting in insurance changes - Exercise: Regularly walks the dog daily for physical activity - Weight management: Patient has lost approximately 90 pounds and is focused on maintaining a healthy weight Review of Systems - Respiratory: Denies dyspnea, cough, or wheezing - Musculoskeletal: Reports left shoulder pain - Neurological: Denies headaches or dizziness Physical Exam - Respiratory: Patient instructed to breathe in and out, no abnormalities noted Results - Labs: Blood work in October 2024 showed normal blood count, electrolytes, renal function, blood sugar, liver function, and thyroid levels - Tests: Prostate biopsy on December 05, 2024, revealed benign findings with mild prostatitis Plan The patient will continue with dietary modifications and exercise to manage hypercholesterolemia, with a focus on reducing triglyceride levels. For obstructive sleep apnea, alternative management strategies will be considered due to intolerance to CPAP therapy. The patient will continue monitoring Camilo's esophagus and follow up as needed. For benign prostatic hyperplasia, the patient will continue finasteride 5 mg daily and follow up with urology for ongoing management. The patient is advised to proceed with physical therapy for left shoulder pain once insurance issues are resolved. Weight management efforts will continue, with a focus on maintaining current weight loss. The patient is encouraged to consider the shingles vaccination to reduce the risk of shingles, with information provided on its availability at pharmacies. Patient was informed and verbally consented to the use of an ambient scribe for clinic note documentation during this visit. Discussion Notes I discussed with the patient the importance of continuing dietary modifications and exercise to manage hypercholesterolemia, emphasizing the need to reduce triglyceride levels. We talked about alternative management strategies for obstructive sleep apnea due to intolerance to CPAP therapy. I advised the patient to continue monitoring Camilo's esophagus and to follow up as needed. For benign prostatic hyperplasia, I recommended continuing finasteride 5 mg daily and following up with urology for ongoing management. I advised the patient to proceed with physical therapy for left shoulder pain once insurance issues are resolved. We discussed the patient's weight management efforts and the importance of maintaining current weight loss. I encouraged the patient to consider the shingles vaccination to reduce the risk of shingles, providing information on its availability at pharmacies. Patient Instructions - Continue with diet and exercise to manage cholesterol levels. - Consider alternative treatments for sleep apnea if CPAP is not tolerated. - Monitor Camilo's esophagus and follow up as needed. - Continue taking finasteride 5 mg daily for BPH and follow up with urology. - Attend physical therapy for shoulder pain once insurance is sorted. - Maintain current weight loss through regular exercise. - Consider getting the shingles vaccine at the pharmacy.
[2025-01-15 09:46] VITALS: BP 112/76; PULSE 96; RESP 18; TEMP 36.2; O2SAT 97; BMI 28.6
--- OUTSIDE RECORDS SUMMARY | 2025-01-15 10:00 | XMS_ITS | Encounter Summary ---
Author Organization [facility] Address [address] [place] [address] Phone Care Team Providers Care Engineering Librarian Name Role Phone Rancho Mariscal MD Primary Care Provider [phone] Encounter Details Date Type Department Care Team (Late st Contact Info) Description 01/04/2022 Procedure Pass [address] [place] [address] Social History Tobacco Use Types Packs/Day Years [...] on filedocumented in this encounter Care Teams Engineering Librarian Relationship Specialty Start Date End Date Rancho Mariscal MD [address] [place] [id number] PCP - General Internal Medicine 01/03/22 documented as of this encounter Additional Source Comments The information contained in this document represents components of the legal health record. It is not the complete legal health record.[facility]
== END 2025-01-15 10:10 | disposition home or self-care (01) ==
LOC: HO.HMCH 09:37
PROVIDERS: PCP Internal Medicine; Visit Provider Internal Medicine
DX: E66.3 Overweight (principal); K22.70 Barrett's esophagus without dysplasia; N40.0 Benign prostatic hyperplasia without lower urinary tract symptoms; M75.102 Unspecified rotator cuff tear or rupture of left shoulder, not specified as traumatic

== ENCOUNTER 2025-05-12 13:32 | Outpatient (AMB) | payer OTHER, SELFPAY ==
--- OUTSIDE RECORDS SUMMARY | 2022-01-03 16:29 | XMS_ITS | Encounter Summary ---
Author Organization [facility] Address [address] [facility] [address] [place] [id number] Phone Care Team Providers Care Grape Picker Name Role Phone Rancho Mariscal MD Primary Care Provider [phone] Encounter Details Date Type Department Care Team (Late st Contact Info) Description 01/03/2022 5:29 PM EDT Hospital Encounter [facility] [address] [place] [id number] Osvaldo Lepe PA [address] [place] [id number] [email or web address] Social History Tobacco Use Types Packs/Day Years Used Date Smoking Tobacco: Never Smokeless Tobacco: Never Alcohol Use Standard Drinks/Week Comments Yes 0 (1 standard drink = 0.6 oz pur e alcohol) 3-5 drinks a month Education Answer Date Recorded Are you interested in more education? Not on preston e 10/14/2022 Are you concerned about learning? Not on file 10/14/2022 No 10/14/2022 No 10/14/2022 Digital Access Answer Date Recorded No 11/12/2022 No 11/12/2022 Reliable internet access at home? Not on file 11/12/2022 Device with a working camera? Not on file Sex and Gender Information Value Date Recorded Sex Assigned at Not on file Legal Sex Male 5:05 PM EDT Gender Identity Not on file Sexual Orientation Not on file documented as of this encounter Plan of Treatment Not on file documented as of this encounter Procedures Procedure Name Priority Date/Time Associated Diagnosis Comments XR ELBOW 3 OR MORE VIEWS (LEFT) Urgent/patient waiting 01/03/2022 5:37 PM EDT Elbow sprain, left, initial encounter documented in this encounter Results * XR ELBOW 3 OR MORE VIEWS (LEFT) (01/03/2022 5:37 PM EDT) Anatomical Region Laterality Modality Elbow Left Computed Radiogr aphy 01/03/2022 5:38 PM EDT Impressions 01/03/2022 5:46 PM EDT No fracture or dislocation. ATTESTATION: Adri Ho as teaching physician, have reviewed the images for this case and if necessary edited the report originally created by Nela Greenberg. Narrative 01/03/2022 5:46 PM EDT XR ELBOW 3 OR MORE VIEWS (LEFT) COMPARISON: None. FINDINGS: No fracture. Normal alignment. Normal joint spaces. No effusion. Triceps enthesopathy. Procedure Note Adri Gibbs MD - 01/03/2022 XR ELBOW 3 OR MORE VIEWS (LEFT) COMPARISON: None. FINDINGS: No fracture. Normal alignment. Normal joint spaces. No effusion. Tricepsenthesopathy. IMPRESSION: No fracture or dislocation. ATTESTATION: Adri Ho as teaching physician, have reviewed theimages for this case and if necessary edited the report originally createdby Nela Greenberg. Osvaldo KOHLER IMG XR UPPER EXTREMITY Tila l Result documented in this encounter Visit Diagnoses Not on filedocumented in this encounter Care Teams Grape Picker Relationship Specialty Start Date End Date Rancho Mariscal MD [address] [place] [address] PCP - General Internal Medicine 01/03/22 documented as of this encounter Additional Source Comments The information contained in this document represents components of the legal health record. It is not the complete legal health record.[facility]
--- OUTSIDE RECORDS SUMMARY | 2024-02-29 07:30 | XMS_ITS ---
Author Organization [facility] Address [address] [place] [address] [place] [id number] Care Team Providers Care Prototype Technician Name Role Phone Rancho Mariscal MD Primary Care Provider Binu Santana Jr Unavailable REASON FOR VISIT diallo'e,screening Problems Problem Type SNOMED Code ICD Code Onset Dates Problem Status W/U Status Risk Notes Problem Diallo esophagus ([id number]) Diallo esophagus (K22.70) Active confirmed Encounters Encounter Location Date Provider Diagnosis [facility] [place] Outpatient [address] [place] [phone] 02/29/2024 Binu Chow Jr Colon cancer screening Z12.11 and Diallo esophagus K22.70 Assessments Encounter Date Diagnosis (ICD Code) Assessment Notes Treatment Notes Treatment Clinical Notes Section Notes 02/29/2024 Colon cancer screening (ICD-10 - Z12.11) 02/29/2024 Diallo esophagus (ICD-10 - K22.70) Plan Of Treatment Next Appt Details Provider Name:Binu lezama Jr, 03/03/2026 09:00:00 AM, [address] [place] [address], [address], [place], [address], Progress Notes * ALLEY POMPA CDOB:1975 (49 yo M)Acc No.[id number]:02/29/2024 EGD and COL/MAC Patient: ALLEY FORREST Provider: Liza Chow MD :1975 A ge:48 Y S ex:Male Date:02/29/2024 Address: [address] [id number] Pcp:Rancho Mariscal MD Subjective: * Chief Complaints: * B arrett'e,screening Assessment: * Assessment: 1. C olon cancer screening - Z12.11 (Primary) 2 . B arrett esophagus - K22.70 Plan: * Procedure Codes: 4 5378 DIAGNOSTIC [id number] UPPER GI ENDOSCOPY, BIOPSY Billing Information: * Procedure Codes: 73502 DIAGNOSTIC COLONOSCOPY. 11614 UPPER GI ENDOSCOPY, BIOPSY. * The named appointment provid er may or may not be the originator of this progress note, and it is not deemed complete until electronically signed by the appointment provider. Sign off status: Pending * Provider: Liza Chow MD Date: 0 02/29/2024 Generated for Sd burton/Ashley/Dcitting on: 07/12/2024 05:27 PM EST
[2025-05-12 13:38] VITALS: BP 108/66; PULSE 72; RESP 18; O2SAT 97; BMI 31.6
--- NOTE | 2025-05-12 13:38 | A.OFFPC_ITS ---
Vital Signs 05/12/25 13:38 Height 5 ft 9 in Weight 214 lb 2 oz BMI 31.6 BP 108/66 Blood Pressure Location Lt brachial Position Sitting Respiration 18 Pulse 72 Pulse Source Pulse Oximeter Temp Source Temporal Artery Scan Pulse Oximetry (%) 97 Oxygen Delivery Method Room Air Intake Visit Reasons: BPH, overweight Engraver Flatware Required: No Accompanied by: Self / Same As Patient Allergies codeine Allergy (Intermediate, Verified 05/12/25 13:46) Hives Medication List - Last Reconciled 05/12/25 by Rancho Mariscal MD finasteride (Proscar) 5 mg PO DAILY multivitamin 1 tab PO DAILY omeprazole 20 mg PO DAILY semaglutide (weight loss) (Wegovy) 0.5 mg (0.5 mL) subcut QWEEK tadalafil (Cialis) 5 mg PO DAILY Tobacco use date assessed: 05/12/25 Dental Screening Dental Screen Date: 05/12/25 Did you have a dental visit in the last 12 months?: Yes Did you have a dental problem in the last 6 months where you did not have access to dental care?: No Was dental information given to patient?: Patient has dentist HPI HPI Comments History of Present Illness Details History of Present Illness The patient is a 49-year-old individual presenting for a follow-up visit for medication management. The patient is overweight and has a history of obstructive sleep apnea, but cannot tolerate CPAP. The patient has a history of Camilo's esophagus and takes wpsc-wfy-mmrmdeo omeprazole 20 mg once daily at nighttime. The last EGD was in February 2024. The patient carries a diagnosis of benign prostatic hyperplasia and is treated with finasteride and tadalafil. The patient reports waking once per night, around 3:30 a.m., to urinate. A PSA level from October 2024 was 4.8, which has reportedly come down. For weight management, the patient was prescribed Wegovy and is currently on the 0.5 mg dose, which is the second step. The patient has been on this dose for a full month and reports a fluctuating weight without any gain or nausea. The patient's history is significant for hypercholesterolemia and hypertriglyceridemia, with a triglyceride level of 170 noted in October 2024. Lab results from October 2024 also showed a normal blood count, electrolytes, renal function, blood sugar, liver function, thyroid levels, and testosterone. Regarding health screenings, the patient's last colonoscopy was in March 2024. The patient has never had an eye exam but is beginning to notice more difficulty seeing in the dark. The patient is up to date with the tetanus shot but has not received a flu shot. Health Maintenance An eye exam was recommended, as the patient has never had one. The shingles vaccine was discussed as an effective, optional, two-part series available at the pharmacy. The patient declined a flu shot at this visit. The patient was advised of ongoing risks from COVID-19, flu, and RSV. A follow-up visit is scheduled in three months. Social History - Employment: Patient has a new job and works shift time, which has recently required more hours. - Sleep: Reports sleeping only about fiv e hours a night and has only slept six hours in the last 48 hours due to work. - Diet: Advised to eat small meals while taking Wegovy. Results - Labs (October 2024): - CBC: Normal - Electrolytes, renal function, blood [place], liver function: All within normal limits - PSA: 4.8 - Triglycerides: 170 (elevated) - Thyroid and testosterone: Within adri l limits - Procedures: - Colonoscopy (March 2024): Results no t detailed. - EGD (February 2024): Results not deta iled. [facility] Medical History Colon cancer screening Low testosterone Left elbow fracture Closed left hip fracture Schatzki's ring Obstructive sleep apnea Hypercholesterolemia Obesity (BMI 30-39.9) Surgical History History of surgery on arm Hx of esophagogastroduodenoscopy History of nasal surgery Family History Mother Myocardial infarct Paternal Grandmother No problems noted. 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 1. Little interest or pleasure in doing things: not at all 2. Feeling down, depressed, or hopeless: not at all 3. Trouble falling or staying asleep, or sleeping too much: not at all 4. Feeling tired or having little energy: not at all 5. Poor appetite or overeating: not at all 6. Feeling bad about yourself - or that you are a failure or have let yourself or your family down: not at all 7. Trouble concentrating on things, such as reading the newspaper or watching television: not at all 8. Moving or speaking so slowly that other people could have noticed. Or the opposite - being so fidgety or restless that you have been moving around a lot more than usual: not at all 9. Thoughts that you would be better off or of hurting yourself in some way: not at all Total score: 0 Source: Developed by Drs. Nasim Thacker, Trupti Kaur, Clayton Krause and colleagues, with an educational karly from [employer]. Thrive Questionnaire Date Thrive assessed: 05/12/25 I am a: Patient What is your living situation today?: I have a steady place to live Within the past 12 months, did the food you bought not last and you didn't have the money to get more?: Never true Within the past 12 months, did you worry whether your food would run out before you got money to buy more?: Never true Do you have trouble paying for medicines?: No Do you have trouble getting transportation to medical appointments?: No Do you have trouble paying your heating and electricity bill?: No Do you have trouble taking care of your child, family member or friend?: No Do you have trouble with day-to-day activities such as bathing, preparing meals, shopping, managing finances, etc.?: No Are you currently unemployed and looking for a job?: No Are you interested in more education?: Yes Please select the resources that you would like help with: None Currently or been in a relationship where the following occur: No concerns reported THRIVE Score: 0 AUDIT C Alcohol Use Questionnaire (AUDIT-C) 1. How often do you have a drink containing alcohol?: Monthly or less 2. How many drinks containing alcohol do you have on a typical day when you are drinking?: 1 or 2 3. How often do you have six or more drinks on one occasion?: Never Total Score: 1 LEAH-7 AMB Questionnaire LEAH-7 Date LEAH - 7 assessed: 09/30/24 Feeling nervous, anxious, or on edge: 0 = Not at all Not being able to stop or control worryin = Not at all Worrying too much about different things: 0 = Not at all Trouble relaxin = Not at all Being so restless that it is hard to sit still: 0 = Not at all Becoming easily annoyed or irritable: 0 = Not at all Feeling afraid as if something awful might happen: 0 = Not at all Total LEAH-7 score (0-4 normal; 5-9 mild; 10-14 moderate; 15-21 severe): 0 Source: Developed by Drs. Nasim Thacker, Trupti Kaur, Clayton Krause and colleagues, with an educational karly from [employer]. Review of Systems Narrative Review of Systems - Constitutional: Denies fever. - Reports poor sleep. - Eyes: Reports difficulty with vision in the dark. - Denies problems with reading or far vision. - Respiratory: Denies cough. - Cardiovascular: Denies palpitations, racing heart, or swelling. - Gastrointestinal: Denies nausea, reflux symptoms, and constipation. - Reports normal bowel movements. - Genitourinary: Reports waking once at night to urinate. - Denies other urinary problems. Physical exam (Primary Care) Vital Signs: Last Vital Signs Pulse 72 05/12/25 13:38 Resp 18 05/12/25 13:38 BP 108/66 05/12/25 13:38 Pulse Ox 97 05/12/25 13:38 Oxygen Delivery Method Room Air 05/12/25 13:38 BMI result Body Mass Index 31.6 Tobacco/Smoking Status: Tobacco use Status Tobacco use date assessed 05/12/25 05/12/25 13:46 Patient Tobacco Use Status Never used Tobacco 05/12/25 13:39 e-Cigarette/Vaping Use Never Used 05/12/25 13:39 PHQ-9: PHQ-9 Score PHQ-9: Total score 0 05/12/25 13:49 Thrive Assessment: Date of Thrive Assessment Date Thrive assessed 05/12/25 05/12/25 13:49 Currently or been in a relationship where the following occur: No concerns reported Narrative Physical Exam Const General: alert; No acute distress Eyes Conjunctivae: conjunctivae normal Resp Auscultation: clear to auscultation bilaterally Cardio Rate: regular rate Rhythm: regular rhythm GI Inspection: Yes normal to inspection Extrem General: Yes normal to inspection and No edema Coding Level of Care Code Complex visit Add On G2211 Diagnoses Obesity (BMI 30-39.9) E66.9 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 K22.70 Camilo's esophagus type: without dysplasia Hypercholesterolemia E78.00 PSA elevation R97.20 BPH (benign prostatic hyperplasia) N40.0 Assessment & Plan Assessment & Plan (1) Obesity (BMI 30-39.9): Code(s): E66.9 - Obesity, unspecified Category: Medical Plan: Diet and exercise and has been prescribed wegovy (2) Barretts esophagus: Code(s): K22.70 - 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 Category: Medical Qualifiers: Camilo's esophagus type: without dysplasia Qualified Code(s): K22.70 - 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 Plan: Avoid the foods that causes that usually spicy foods, tomato products, juices, coffee, soda and foods that your sensitive to. After eating do not lie down, allow 3-4 hours before in lie down. And keep the head of bed above 30 degrees to avoid the acid from going up. (3) Hypercholesterolemia: Code(s): E78.00 - Pure hypercholesterolemia, unspecified Category: Medical Plan: Avoid fried foods, chicken skin, eggs, butter margarine, pastries and meat. Be it pork or beef they have a lot of cholesterol LDL goal of less than 130 and triglyceride of less than 150. October 2024 last blood (4) PSA elevation: Code(s): R97.20 - Elevated prostate specific antigen [PSA] Category: Medical Plan: PSA has come down. Will continue to monitor (5) BPH (benign prostatic hyperplasia): Code(s): N40.0 - Benign prostatic hyperplasia without lower urinary tract symptoms Category: Medical Plan: Continue with finasteride and tadalafil Plan Plan Patient was informed and verbally consented to the use of an ambient scribe for clinic note documentation during this visit. 1. Overweight The patient is currently on Wegovy 0.5 mg and reports fluctuating weight but is not losing weight. The patient denies nausea with the current dose. The plan is to increase Wegovy to the 1 mg dose. The patient was instructed to finish the remaining two-week supply of the 0.5 mg dose before starting the new prescription, which was sent to [facility]. The patient was advised to follow up if there is no weight loss after three weeks on the 1 mg dose for a possible further increase and was also counseled on eating smaller meals. 2. Benign Prostatic Hyperplasia The patient reports symptoms are controlled with finasteride and tadalafil, with nocturia occurring once per night. Will continue the current medication regimen. A refill for tadalafil was sent to [facility] per the patient's request. Will continue to monitor PSA levels. 3. Camilo's Esophagus The patient's reflux symptoms are controlled on thjo-dgx-cwibpbj omeprazole 20 mg once daily. The patient will continue the current management. 4. Hypercholesterolemia The treatment goal for LDL is less than 130 and for triglycerides is less than 150. Discussion included diet and exercise. No medication changes were made at this visit. Discussion Notes I discussed the plan for weight management with the patient, who is on Wegovy 0.5 mg but has not experienced weight loss. I explained that we will increase the dose to 1 mg, and I sent a prescription to the pharmacy. I instructed the patient to finish the current two-week supply first and to let me know if weight loss does not occur after about three weeks on the new dose, as we may need to increase it further. I also advised eating smaller meals to prevent gastrointestinal side effects. We reviewed the patient's BPH treatment, and the patient will continue finasteride and tadalafil. I sent a new prescription for tadalafil to the patient's preferred pharmacy. I recommended an eye exam as the patient has never had one. We also discussed the shingles vaccine as an effective two-part series for lifelong protection, which is available at the pharmacy, though it is not a required vaccine. I advised the patient to be careful with the current prevalence of COVID, flu, and RSV. I advised the patient to follow up in three months, but to contact me sooner if any problems arise. Patient Instructions - Continue taking your current medications for your prostate, finasteride and tadalafil. - A refill for tadalafil has been sent to [facility]. - Continue taking whyt-bgk-wmfklft omeprazole 20 mg once at night for your stomach. - Finish your last two weeks of the Wegovy 0.5 mg shots. - After that, start the new, higher dose of Wegovy (1 mg). - A prescription for the 1 mg dose has been sent to the [facility] on [facility]. - Let the office know if you do not lose any weight after three weeks on the new 1 mg dose of Wegovy. - Try to eat smaller meals to avoid stomach upset. - It is recommended that you get an eye exam, since you have never had one before. - If you choose, you can get the two-part shingles vaccine at your pharmacy. - Be careful during this season, as COVID, flu, and RSV are going around. - Please schedule a follow-up appointment in three months. - If you have any problems before then, please contact the office. Medications: New omeprazole 20 mg PO DAILY 30 caps 3RF Changed From semaglutide (weight loss) (Wegovy) administer weeks 5 through 8 of therapy 0.5 mg (0.5 mL) subcut QWEEK 2 mL 1RF E66.3 - Overweight To semaglutide (weight loss) administer weeks 5 through 8 of therapy 1 mg (0.5 mL) subcut QWEEK 2 mL 3RF E66.3 - Overweight Refilled tadalafil (Cialis) [id number] [facility] [id number] Member [id number] PLEASE USE COUPON 5 mg PO DAILY 30 tabs 4RF
--- OUTSIDE RECORDS SUMMARY | 2025-05-12 17:26 | XMS_ITS | Encounter Summary ---
Author Organization [facility] Address [address] [place] [address] Phone Care Team Providers Care Header Up Name Role Phone Rancho Mariscal MD Primary Care Provider [phone] Encounter Details Date Type Department Care Team (Late st Contact Info) Description 01/04/2022 Procedure Pass [address] [place] [address] Social History Tobacco Use Types Packs/Day Years [...] on filedocumented in this encounter Care Teams Header Up Relationship Specialty Start Date End Date Rancho Mariscal MD [address] [place] [id number] PCP - General Internal Medicine 01/03/22 documented as of this encounter Additional Source Comments The information contained in this document represents components of the legal health record. It is not the complete legal health record.[facility]
--- OUTSIDE RECORDS SUMMARY | 2025-05-12 17:26 | XMS_ITS | Encounter Summary ---
Author Organization [facility] Address [address] [place] [address] Phone Care Team Providers Care Laser/Electro Optics Technician Name Role Phone Rancho Mariscal MD Primary Care Provider [phone] Encounter Details Date Type Department Care Team (Late st Contact Info) Description 01/19/2022 Procedure Pass OR Admitting Dept - Virtual Department [address] [place] [id number] Social History Tobacco Use Types Packs/Day Years Used Date Smoking Tobacco: Never Smokeless Tobacco: Never Alcohol Use Standard Drinks/Week Comments Yes 0 (1 standard drink = 0.6 oz pur e alcohol) 3-5 drinks a month Sex and Gender Information Value Date Recorded Sex Assigned at Not on file Legal Sex Male 5:05 PM EDT Gender Identity Not on file Sexual Orientation Not on file documented as of this encounter Plan of Treatment Not on file documented as of this encounter Visit Diagnoses Not on filedocumented in this encounter Care Teams Laser/Electro Optics Technician Relationship Specialty Start Date End Date Rancho Mariscal MD [address] [place] [address] PCP - General Internal Medicine 01/03/22 documented as of this encounter Additional Source Comments The information contained in this document represents components of the legal health record. It is not the complete legal health record.[facility]
--- OUTSIDE RECORDS SUMMARY | 2025-05-12 17:27 | XMS_ITS | Clinical Summary ---
Author Organization [facility] Address [address] [place] [address] Phone Care Team Providers Care Teaching Assistant Name Role Phone Rancho Mariscal MD Primary Care Provider [phone] Allergies Active Allergy Reactions Criticality Noted Date Comments Codeine Phosphate Hives High 07/16/2020 Medications simvastatin (ZOCOR) 10 MG tablet Take 10 mg by mouth nightly at bedtime. at bedtime. 2 Active omeprazole (PRILOSEC) 20 MG capsule Take 1 tablet by mouth daily. Active aspirin 325 MG EC tablet Take 1 tablet (325 mg total) by mouth daily for 14 days. 14 tablet 2 Active Additional Information Patient not taking.Reported on 04/12/2022 Active Problems No known active problems Social History Tobacco Use Types Packs/Day Years [...] on file Sexual Orientation Not on file Last Filed Vital Signs Vital Sign Reading Time Taken Comments Blood Pressure 114/78 01/19/2022 3:30 PM EDT Pulse 78 01/19/2022 3:30 PM EDT Temperature 36.7 C (98.1 F) 01/19/2022 3:30 PM EDT Respiratory Rate 9 01/19/2022 3:30 PM EDT Oxygen Saturation 96% 01/19/2022 3:30 PM EDT Inhaled Oxygen Concentration - - Weight 115.7 kg (255 lb) 01/17/2022 10:59 AM EDT Height 175.3 cm (5' 9 ) 01/17/2022 10:59 AM EDT Body Mass Index 37.66 01/17/2022 10:59 AM EDT Plan of Treatment Health Maintenance Due Date Last Done Comments LIPID PANEL 1973 DEPRESSION SCREENING 1985 HEPATITIS C SCREENING 09/06/1991 HIV ONE-TIME SCREENING (18-6 5 YEARS) 09/06/1991 COLOGUARD 2018 COLONOSCOPY 2018 COLORECTAL CANCER SCREENING 2018 FIT TEST 2018 FOBT 2018 SIGMOIDOSCOPY 2018 VIRTUAL COLONOSCOPY 2018 PNEUMOCOCCAL VACCINES (50+ years) (1 of 1 - PCV) 09/06/2023 ZOSTER VACCINES (1 of 2) 09/06/2023 INFLUENZA VACCINE (#1) 2025 COVID-19 VACCINE (3 - 2024-2 6 season) 2025 01/27/2021, 01/06/2021 Adult Td,Tdap Booster 09/04/2029 2019 , 08/25/2009 RSV VACCINE (1 - 1-dose 75+ series) 2048 SMOKING STATUS SCREENING (On ce After 26 Yrs) Completed 07/11/2022 HEPATITIS A VACCINES Aged Out No long er eligible based on patient's age to complete this topic HIB VACCINES Aged Out No longer eligi ble based on patient's age to complete this topic MENINGOCOCCAL VACCINES (ACWY) Aged Out No longer eligible based on patient's age to complete this topic MENINGOCOCCAL VACCINES (B) Aged Out N o longer eligible based on patient's age to complete this topic Medical Devices Implanted Type Area Storage Brine Worker Device Identifier Shelf Expiration Date Model / Serial / Lot Repair Bicep Number 2 System Delivery Implant Distal Straight Needle - [id number] Implanted:Qty: 1 on 01/19/2022 by Balta Leonardo DO at [facility] Left: Arm ARTHREX 04/17/2026 [id number] / / [id number] [place] Suture 7x19.1mm Swivelock Tenodesis Bx/5ea - [id number] Implanted:Qty: 1 on 01/19/2022 by Balta Leonardo DO at [facility] Left: Arm ARTHREX 05/17/2024 [id number] / / [id number] Device Fixation Ultrabutton Adjustable - [id number] Implanted:Qty: 1 on 01/19/2022 by Balta Leonardo DO at [facility] Left: Arm ANGULO 09/23/2024 [id number] / / [id number] Insurance [facility] PPO EPO [facility] PPO EPO [facility] PPO EPO [facility] PPO EPO [facility] PPO [facility]PO [facility] PPO [facility]PO [facility] [place] [address] [place] [address] PPO EPO [facility] PPO EPO [employer] Care Teams Teaching Assistant Relationship Specialty Start Date End Date Rancho Mariscal MD [address] [place] [address] PCP - General Internal Medicine 01/03/22 Additional Source Comments The information contained in this document represents components of the legal health record. It is not the complete legal health record.[facility]
--- OUTSIDE RECORDS SUMMARY | 2025-05-12 17:27 | XMS_ITS | Patient Health Record ---
Author Organization [facility] Address [address] [place] [id number] Care Team Providers Care Reaming Machine [employer] Name Role Phone Rancho Mariscal MD Primary Care Provider Binu Santana Jr Unavailable Allergies Allergen (clinical drug ingredient) Drug/Non Drug Allergy documented on EMR Reaction Allergy Type Onset Date Status Codeine Phosphate Unknown Drug Allergy Active Reason For Referral No Information Medications Medication SIG (Take, Route, Frequency, Duration) Notes Start Date End Date Status Finasteride 5 MG Tablet TAKE 1 TABLET BY MOUTH EVERY DAY Oral; Duration: 90 Days Active Finasteride 5 MG Tablet TAKE 1 TABLET BY MOUTH EVERY DAY Oral; Duration: 90 Days Active Finasteride 5 MG Tablet TAKE 1 TABLET BY MOUTH EVERY DAY Oral; Duration: 90 Days Active Zepbound 5 MG/0.5ML Solution Auto-injector 0.5 mL Subcutaneous; Duration: 30 day(s) Active Omeprazole 20 MG Capsule Delayed Release TAKE 1 CAPSULE BY MOUTH EVERY DAY; Duration: 90 days Active Tadalafil 5 MG Tablet 1 tablet as needed Orally Once a day Active Simvastatin Not-Taki ng/PRN MiraLax (colon prep) 8.3 ounce ((238) grams mixed with Gatorade or Crystal Light orally begin at 5:00 p.m. the day before the procedure; Duration: 1 day 02/11/2024 Not-Taking/PRN Immunizations Vaccine Route Administration Date Status Comme nts Influenza Unknown 04/19/2020 Refused Influenza Unknown 02/11/2024 Refused Social History Tobacco Use: Social History Observation Description Date Details (start date - stop date) Never Smoker NA - NA Social History Drugs/Alcohol: Social Info Question Answer Notes Alcohol Screen Did you have a drink containing alcohol in the past year? 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) Active confirmed Problem Dysphagia (51433516) Dysphagia, unspecified (R13.10) Active confirmed Problem Erosive esophagitis (09884983) Erosive esophagitis (K22.10) Active confirmed Problem Camilo esophagus (999567641) Camilo esophagus (K22.70) Active confirmed Vital Signs Temperature 98.6 degrees Fahrenheit 02/25/2025 Blood pressure diastolic 01 mm Hg 02/25/2025 Height 69 in 02/25/2025 Blood pressure systolic 001 mm Hg 02/25/2025 Weight 199.8 lbs 02/25/2025 BMI 29.5 kg/m2 02/25/2025 Encounters Encounter Location Date Provider Diagnosis [facility] [address] [place] [address] 02/25/2025 Binu Chow Jr 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 K22.70 and Camilo esophagus K22.70 Assessments Encounter Date Diagnosis (ICD Code) Assessment Notes Treatment Notes Treatment Clinical Notes Section Notes 02/25/2025 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 (ICD-10 - K22.70) Tino is currently doing well. We have recommended he continue omeprazole 20 mg daily. Prescription is sent to pharmacy. We discussed diet, lifestyle modifications, and weight management regarding the treatment of reflux. He will continue these measures as well as medication. We discussed that even though there were no changes of Camilo's esophagus on his present biopsies, with his history 5-year follow-up is warranted, sooner if he has worsening symptoms. This is true also with his colon cancer screening regimen because of his family history of colon cancer. Follow-up will be in 1 year. 02/25/2025 Camilo esophagus (ICD-10 - K22.70) Tino is currently doing well. We have recommended he continue omeprazole 20 mg daily. Prescription is sent to pharmacy. We discussed diet, lifestyle modifications, and weight management regarding the treatment of reflux. He will continue these measures as well as medication. We discussed that even though there were no changes of Camilo's esophagus on his present biopsies, with his history 5-year follow-up is warranted, sooner if he has worsening symptoms. This is true also with his colon cancer screening regimen because of his family history of colon cancer. Follow-up will be in 1 year. Plan Of Treatment Future Test Test Name Order Date UPPER GI ENDOSCOPY 04/19/2020 UPPER GI ENDOSCOPY 07/16/2020 UPPER GI ENDOSCOPY 02/11/2024 COLONOSCOPY 02/11/2024 Next Appt Details Provider Name:Binualondra lezama , 03/03/2026 09:00:00 AM, [address] [place] [address], [address], [place], [address], Insurance Providers Payer Name Payer Address Payer Phone Subscriber Number Group Number Insured Name Patient Relationship to Insured Coverage Start Date Coverage End Date [facility] [address] [place] [phone] [id number] TINO POMPA Self - patient is the insured Medical (General) History Medical History History ICD Code Hyperlipidemia CHRISTIE Elevated BMI Close left hip fracture Camilo's esophagus, EGD/, no dysplasia, two-year followup., Follow-up EGD 03/11, no BE on biopsy, 5-year EGD follow-up Colonoscopy 03/11, normal, 5- year follow-up for family history of colon cancer and polyps BPH, elevated PSA with negative biopsies . Surgical History Surgery Date(Month/Year) nasal reconstruction Repair of left arm biceps tendon
== END 2025-05-12 14:03 | disposition home or self-care (01) ==
LOC: HO.HMCH 13:33
PROVIDERS: PCP Internal Medicine; Visit Provider Internal Medicine
DX: K22.70 Barrett's esophagus without dysplasia (principal); E66.9 Obesity, unspecified; Z68.31 Body mass index [BMI] 31.0-31.9, adult; E78.00 Pure hypercholesterolemia, unspecified; R97.20 Elevated prostate specific antigen [PSA]; N40.0 Benign prostatic hyperplasia without lower urinary tract symptoms